=== PATIENT | female | born 1995 | race Caucasian/White ===

== ENCOUNTER → 2018-01-12 | Outpatient (REF) | payer BC ==
[2018-01-12 15:05] LABS: CHLAMYDIA DNA AMPLIFICATION NEGATIVE (NEGATIVE)
[2018-01-13 11:38] LABS: GC DNA AMPLIFICATION NEGATIVE (NEGATIVE)
== END ==
LOC: M LAB REF 13:03
DX: Z34.82 Encounter for supervision of other normal pregnancy, second trimester (principal)
CPT/HCPCS: 87086

== ENCOUNTER → 2018-01-12 | Outpatient (CLI) | payer BC | LOC: M SMT 10:05 | DX: Z13.79 Encounter for other screening for genetic and chromosomal anomalies (principal) ==

== ENCOUNTER → 2018-01-29 | Outpatient (CLI) | payer BC | LOC: M RAD 16:54 | DX: Z34.82 Encounter for supervision of other normal pregnancy, second trimester (principal) ==

== ENCOUNTER 2018-02-08 13:18 | Emergency (ER) | payer BC ==
[2018-02-08] MEDS: NS 1,000 ML IV (16:11)
[2018-02-08 16:17] LABS: BASO % 0.3 % (0.0-1.0); EOS # 0.1 10^3/uL (0.0-0.50); EOS % 0.7 % (0.0-3.0); HEMATOCRIT 36.7 % (36.0-47.0); HEMOGLOBIN 12.7 g/dl (12.0-15.5); IMMATURE GRANULOCYTE % 0.4 % (0-3.0); LYMPH # 2.5 10^3/uL (1.5-6.5); LYMPH % 22.3 % (24.0-44.0); MEAN CORPUSCULAR HEMOGLOBIN 29.7 pg (27.0-33.0); MEAN CORPUSCULAR HGB CONC 34.6 g/dl (32.0-36.5); MEAN CORPUSCULAR VOLUME 85.7 fl (80.0-96.0); MONO # 0.7 10^3/uL (0.0-0.8); MONO % 6.4 % (0.0-5.0); NEUTROPHILS # 7.7 10^3/uL (1.8-7.7); NEUTROPHILS % 69.9 % (36.0-66.0); PLATELET COUNT, AUTOMATED 264 10^3/uL (150-450); RED BLOOD COUNT 4.28 10^6/uL (4.00-5.40)
[2018-02-08 16:49] LABS: KETONE, URINE AUTO RFX 1+ mg/dL (NEGATIVE); LEUKOCYTE ESTERASE UR AUTO RFX NEGATIVE (NEGATIVE); MUCUS, URINE RFX SMALL (NEGATIVE); NITRITE, URINE AUTO RFX NEGATIVE (NEGATIVE); RBC, URINE AUTO RFX 1 /HPF (0-3); SPECIFIC GRAVITY UR AUTO RFX 1.016 (1.002-1.035); SQUAM EPITHELIAL CELL UR AURFX 3 /HPF (0-6); WBC, URINE AUTO RFX 2 /HPF (0-3)
[2018-02-08 16:56] LABS: ALBUMIN 3.4 GM/DL (3.2-5.2); ALBUMIN/GLOBULIN RATIO 0.94 (1.00-1.93); ALKALINE PHOSPHATASE 70 U/L (45-117); ALT/SGPT 32 U/L (12-78); ANION GAP 8 MEQ/L (8-16); AST/SGOT 15 U/L (7-37); BILIRUBIN,DIRECT 0.1 MG/DL (0.0-0.2); BILIRUBIN,TOTAL 0.3 MG/DL (0.2-1.0); BLOOD UREA NITROGEN 8 MG/DL (7-18); CALCIUM LEVEL 8.4 MG/DL (8.5-10.1); CARBON DIOXIDE LEVEL 25 MEQ/L (21-32); CHLORIDE LEVEL 105 MEQ/L (98-107); CREATININE FOR GFR 0.38 MG/DL (0.55-1.30); GLOMERULAR FILTRATION RATE > 60.0 (>60); GLUCOSE, FASTING 79 MG/DL (70-100); HCG, SERUM QUANTITATIVE 21537 MIU/ML; LIPASE 96 U/L (73-393); SODIUM LEVEL 138 MEQ/L (136-145)
== END 2018-02-08 17:45 | disposition home or self-care (01) ==
LOC: M ED 13:18
DX: O26.612 Liver and biliary tract disorders in pregnancy, second trimester (principal); O23.42 Unspecified infection of urinary tract in pregnancy, second trimester; O99.342 Other mental disorders complicating pregnancy, second trimester; Z3A.20 20 weeks gestation of pregnancy; Z79.899 Other long term (current) drug therapy
CPT/HCPCS: 76705

== ENCOUNTER → 2018-02-22 | Outpatient (CLI) | payer BC | LOC: M RAD 16:52 | DX: Z34.82 Encounter for supervision of other normal pregnancy, second trimester (principal); Z36.89 Encounter for other specified antenatal screening; Z3A.21 21 weeks gestation of pregnancy | CPT/HCPCS: 76816 ==

== ENCOUNTER → 2018-03-12 | Outpatient (CLI) | payer BC, MEDICAID ==
[2018-03-12 13:12] LABS: BASO # 0.1 10^3/uL (0.0-0.2); BASO % 0.4 % (0.0-1.0); EOS # 0.1 10^3/uL (0.0-0.50); EOS % 0.7 % (0.0-3.0); HEMATOCRIT 36.9 % (36.0-47.0); HEMOGLOBIN 12.5 g/dl (12.0-15.5); IMMATURE GRANULOCYTE % 0.5 % (0-3.0); LYMPH # 1.9 10^3/uL (1.5-6.5); LYMPH % 16.2 % (24.0-44.0); MEAN CORPUSCULAR HGB CONC 33.9 g/dl (32.0-36.5); MEAN CORPUSCULAR VOLUME 88.7 fl (80.0-96.0); MONO # 0.8 10^3/uL (0.0-0.8); MONO % 6.7 % (0.0-5.0); NEUTROPHILS % 75.5 % (36.0-66.0); PLATELET COUNT, AUTOMATED 258 10^3/uL (150-450); RED BLOOD COUNT 4.16 10^6/uL (4.00-5.40); RED CELL DISTRIBUTION WIDTH 12.7 % (11.5-14.5); WHITE BLOOD COUNT 11.9 10^3/uL (4.0-10.0)
[2018-03-12 13:58] LABS: GLUCOSE CHALLENGE TEST 1 HOUR 60 MG/DL (LESS THAN 140)
== END ==
LOC: M SMT 09:58
DX: Z36.89 Encounter for other specified antenatal screening (principal)
CPT/HCPCS: 82950

== ENCOUNTER → 2018-03-25 | Outpatient (CLI) | payer BC, MEDICAID | LOC: M RAD 10:43 | DX: Z34.82 Encounter for supervision of other normal pregnancy, second trimester (principal); Z36.89 Encounter for other specified antenatal screening; Z3A.26 26 weeks gestation of pregnancy | CPT/HCPCS: 76816 ==

== ENCOUNTER → 2018-04-21 | Outpatient (REF) | payer BC, MEDICAID ==
[2018-04-28 14:19] LABS: SUMMARY SEE SEPARATE REPORT
== END ==
LOC: M LAB REF 13:16
DX: Z34.83 Encounter for supervision of other normal pregnancy, third trimester (principal)
CPT/HCPCS: 87086

== ENCOUNTER → 2018-06-02 | Outpatient (REF) | payer BC, MEDICAID | LOC: M LAB REF 17:15 | DX: Z34.03 Encounter for supervision of normal first pregnancy, third trimester (principal) | CPT/HCPCS: 87081 ==

== ENCOUNTER 2018-07-02 06:26 | Inpatient (IN) | payer BC, MEDICAID ==
[2018-07-02 07:51] LABS: HEMATOCRIT 34.9 % (36.0-47.0); HEMOGLOBIN 12.2 g/dl (12.0-15.5); MEAN CORPUSCULAR HEMOGLOBIN 29.9 pg (27.0-33.0); MEAN CORPUSCULAR VOLUME 85.5 fl (80.0-96.0); PLATELET COUNT, AUTOMATED 209 10^3/uL (150-450); RED BLOOD COUNT 4.08 10^6/uL (4.00-5.40); RED CELL DISTRIBUTION WIDTH 12.3 % (11.5-14.5); WHITE BLOOD COUNT 11.6 10^3/uL (4.0-10.0)
[2018-07-02 08:04] LABS: ALBUMIN 2.6 GM/DL (3.2-5.2); ALKALINE PHOSPHATASE 143 U/L (45-117); ALT/SGPT 18 U/L (12-78); ANION GAP 9 MEQ/L (8-16); AST/SGOT 13 U/L (7-37); BILIRUBIN,TOTAL 0.2 MG/DL (0.2-1.0); BLOOD UREA NITROGEN 9 MG/DL (7-18); CALCIUM LEVEL 8.5 MG/DL (8.5-10.1); CARBON DIOXIDE LEVEL 25 MEQ/L (21-32); CHLORIDE LEVEL 107 MEQ/L (98-107); CREATININE FOR GFR 0.44 MG/DL (0.55-1.30); GLOMERULAR FILTRATION RATE > 60.0 (>60); GLUCOSE, FASTING 89 MG/DL (70-100); POTASSIUM SERUM 3.9 MEQ/L (3.5-5.1); SODIUM LEVEL 141 MEQ/L (136-145); TOTAL PROTEIN 5.5 GM/DL (6.4-8.2)
[2018-07-02] MEDS: miSOPROStol 50 MCG 1/2 TAB (S0191) PO ×2 (08:26→12:33)
[2018-07-02 11:59] LABS: HBSAG L&D NEGATIVE (NEGATIVE)
[2018-07-02] MEDS: LR 1,000 ML IV (17:56)
[2018-07-02] MEDS: OXYTOCIN DRIP 30 UNITS in APPROPRIATE DILUENT 1 EA IV (17:56)
[2018-07-02] MEDS ORDERED: FENTANYL 2MCG/ML ROPIVACAINE 0.2% IN 0.9% NACL 200ML IVBAG As Ordered (22:05)
[2018-07-02] MEDS ORDERED: ONDANSETRON 4MG/2ML VIAL (J2405) As Ordered (23:00)
[2018-07-02] MEDS ORDERED: FENTANYL/ROPIVACAINE/NACL BAG 200 ML EPIDURAL (23:45)
[2018-07-02] MEDS ORDERED: EPIDURAL/PCA KEYS XX (23:45)
[2018-07-02] MEDS ORDERED: diphenhydrAMINE INJ 50MG/ML VIAL (J1200) IV (23:45)
[2018-07-02] MEDS ORDERED: ONDANSETRON 4MG/2ML VIAL (J2405) IV ×2 (23:45)
[2018-07-02] MEDS ORDERED: REFRIGERATOR IV KEYS XX (23:45)
[2018-07-02] MEDS ORDERED: NALOXONE INJ 0.4 MG/1 ML VIAL (J2310) IV (23:45)
[2018-07-02] MEDS ORDERED: EPIDURAL COMMENT XX (23:45)
[2018-07-03] MEDS: ePHEDrine SULFATE 25 MG/5 ML(5MG/ML) SYRINGE IV (00:32)
[2018-07-03] MEDS: FAMOTIDINE 20 MG TAB PO (00:33)
[2018-07-03] MEDS: OXYTOCIN DRIP 30 UNITS in APPROPRIATE DILUENT 1 EA IV (05:19)
[2018-07-03 05:28] LABS: CORD GAS ABE A -3.2; CORD GAS HCO3 A 25.8 MEQ/L; CORD GAS O2 SAT A 41.9 %; CORD GAS PCO2 A 62.9 mmHg; CORD GAS PO2 A 21.4 mmHg; CORD GAS SBC A 20.5 MEQ/L; CORD GAS TCO2 A 27.7 MEQ/L
[2018-07-03 05:29] LABS: CORD GAS ABE V -2.8; CORD GAS HCO3 V 22.5 MEQ/L; CORD GAS PCO2 V 40.9 mmHg; CORD GAS PH V 7.358 UNITS; CORD GAS PO2 V 34.6 mmHg; CORD GAS SBC V 21.7 MEQ/L; CORD GAS TCO2 V 23.7 MEQ/L
[2018-07-03] MEDS ORDERED: MEASLES,MUMPS,RUBELLA VACCINE INJ (MMR-II) (90707) SC (05:30)
[2018-07-03] MEDS ORDERED: ANUSOL HC CREAM 30GM TOP (05:30)
[2018-07-03] MEDS ORDERED: MOM 30ML SUSPENSION UDC PO (05:30)
[2018-07-03] MEDS ORDERED: METHYLERGONOVINE MALEATE 0.2 MG TAB PO (05:30)
[2018-07-03] MEDS ORDERED: DIBUCAINE 1% OINTMENT 30GM TOP (05:30)
[2018-07-03] MEDS ORDERED: RHOGAM 300 MCG (1500 IU) INJ (J2790) IM (05:30)
[2018-07-03] MEDS: PRENATAL VITAMINS CHEWABLE TABLET PO (10:44)
[2018-07-03] MEDS: IBUPROFEN 800 MG TAB PO ×2 (11:42→19:37)
[2018-07-03] MEDS: CitaloPRAM (CeleXA) 10 MG TABLET PO (16:48)
[2018-07-03] MEDS: ACETAMINOPHEN 500 MG TAB PO (16:48)
[2018-07-04] MEDS: ACETAMINOPHEN 500 MG TAB PO (07:17)
[2018-07-04] MEDS: DOCUSATE SODIUM 100 MG CAP PO (07:27)
[2018-07-04] MEDS: CitaloPRAM (CeleXA) 10 MG TABLET PO (09:18)
[2018-07-04] MEDS: PRENATAL VITAMINS CHEWABLE TABLET PO (09:18)
== END 2018-07-04 14:40 | disposition home or self-care (01) | DRG 0 ==
LOC: M LDI 06:26 → M OBS 07-03 07:48
PROVIDERS: Obstetrics & Gynecology
PROC: 3E0P7GC Introduction of Other Therapeutic Substance into Female Reproductive, Via Natural or Artificial Opening (ICD-10-PCS; 2018-07-02)
PROC: 10E0XZZ Delivery of Products of Conception, External Approach (ICD-10-PCS; principal; 2018-07-03)
PROC: 0HQ9XZZ Repair Perineum Skin, External Approach (ICD-10-PCS; 2018-07-03)
DX: O26.62 Liver and biliary tract disorders in childbirth (principal); Z3A.40 40 weeks gestation of pregnancy; O48.0 Post-term pregnancy; O66.0 Obstructed labor due to shoulder dystocia; O70.0 First degree perineal laceration during delivery; Z37.0 Single live birth

== ENCOUNTER → 2018-07-08 | Outpatient (REF) | payer BC, MEDICAID | LOC: M LAB REF 17:00 | DX: R30.0 Dysuria (principal) | CPT/HCPCS: 87086 ==

== ENCOUNTER → 2018-07-13 | Outpatient (REF) | payer BC, MEDICAID | LOC: M LAB REF 16:58 | DX: R30.0 Dysuria (principal) | CPT/HCPCS: 87086 ==

== ENCOUNTER 2018-10-15 16:52 | Inpatient (IN) | payer BC, MEDICAID ==
[~2018-10-15] VITALS: Ht 167.6 cm; Wt 120.7 kg
[~2018-10-15 16:52] MED LIST: AUGM875T28 PO; BENA25CA4 PO; CELE10TA PO; COLA100C5 PO; FOLI1TAB11 PO; IBUP-1114 PO; MAPA500T2 PO; MOM30SS PO; PRENTAB55 PO; ZANTTAB PO
[2018-10-15] MEDS ORDERED: CETI10TA PO (17:05)
[2018-10-15] MEDS ORDERED: OXCA600T8 PO (17:05)
[2018-10-15] MEDS ORDERED: HYDR-643 PO (17:05)
[2018-10-15] MEDS ORDERED: OXCA300T14 PO (17:05)
[2018-10-15] MEDS ORDERED: MEDR150I10 (17:06)
[2018-10-15 17:44] LABS: HEMATOCRIT 42.5 % (36.0-47.0); HEMOGLOBIN 14.2 g/dl (12.0-15.5); MEAN CORPUSCULAR HEMOGLOBIN 28.3 pg (27.0-33.0); MEAN CORPUSCULAR HGB CONC 33.4 g/dl (32.0-36.5); MEAN CORPUSCULAR VOLUME 84.8 fl (80.0-96.0); PLATELET COUNT, AUTOMATED 301 10^3/uL (150-450); RED BLOOD COUNT 5.01 10^6/uL (4.00-5.40); WHITE BLOOD COUNT 9.2 10^3/uL (4.0-10.0)
[2018-10-15 18:10] LABS: HCG, SERUM QUALITATIVE NEGATIVE (NEGATIVE)
[2018-10-15 18:11] LABS: AMPHETAMINES LEVEL URINE NEGATIVE (NEGATIVE); BARBITURATES URINE NEGATIVE (NEGATIVE); BENZODIAZEPINES URINE NEGATIVE (NEGATIVE); CANNABINOIDS URINE POSITIVE (NEGATIVE); COCAINE METABOLITE URINE NEGATIVE (NEGATIVE); METHADONE URINE NEGATIVE (NEGATIVE); OPIATES URINE NEGATIVE (NEGATIVE); PHENCYCLIDINE URINE NEGATIVE (NEGATIVE)
[2018-10-15 18:20] LABS: ALBUMIN 4.3 GM/DL (3.2-5.2); ALT/SGPT 27 U/L (12-78); BILIRUBIN,DIRECT 0.1 MG/DL (0.0-0.2); BILIRUBIN,TOTAL 0.3 MG/DL (0.2-1.0); BLOOD UREA NITROGEN 9 MG/DL (7-18); CALCIUM LEVEL 8.8 MG/DL (8.5-10.1); CARBON DIOXIDE LEVEL 25 MEQ/L (21-32); CHLORIDE LEVEL 106 MEQ/L (98-107); CREATININE FOR GFR 0.69 MG/DL (0.55-1.30); ETHYL ALCOHOL (ETHANOL) < 0.003 % (0.000-0.010); GLOMERULAR FILTRATION RATE > 60.0 (>60); GLUCOSE, FASTING 88 MG/DL (70-100); POTASSIUM SERUM 3.7 MEQ/L (3.5-5.1); SALICYLATE LEVEL < 1.7 MG/DL (5.0-30.0); SODIUM LEVEL 138 MEQ/L (136-145); TOTAL PROTEIN 7.8 GM/DL (6.4-8.2)
[2018-10-15 18:21] LABS: ACETAMINOPHEN LEVEL < 2.0 UG/ML (10.0-30.0); THYROID STIMULATING HORMONE 0.313 uIU/ML (0.358-3.740)
[2018-10-15] MEDS ORDERED: ACETAMINOPHEN TAB 650MG DOSE (2X325MG) PO PRN (19:30)
[2018-10-15] MEDS ORDERED: MAALOX 30 ML SUSP *UDC PO PRN (19:30)
[2018-10-15] MEDS ORDERED: MOM 30ML SUSPENSION UDC PO PRN (19:30)
[2018-10-15 20:09] VITALS: BP 154/96
[2018-10-15] MEDS: traZODone 50 MG TAB PO PRN (22:12)
[2018-10-16 06:00] VITALS: BP 130/93
[2018-10-16 10:55] VITALS: BP 132/81
--- NOTE | 2018-10-16 13:32 | NUR ---
Patient seen, note to follow
[2018-10-16] MEDS: hydrOXYzine 25 MG TAB PO PRN (13:56)
[2018-10-16] MEDS: OXcarbazepine 150 MG TAB PO SCH ×2 (13:56→21:09)
[2018-10-16] MEDS ORDERED: OLANZapine ORAL DISINTEGRATING TAB 5MG PO PRN (15:00)
--- NOTE | 2018-10-16 17:47 | MHHPE ---
DATE OF ADMISSION: 10/16/2018 CHIEF COMPLAINT: Feels irritable. SUBJECTIVE: She is 23 years old. She is single. Has a partner, Dimitri. They have a child, recently born, a few months old. I know the patient from the outpatient clinic, where I see her. Has a history of bipolar disorder (other specific bipolar and related disorders with the possibility of bipolar type 2 disorder). Is also anxious. Please refer to my initial assessment from the outpatient clinic for details related to background history and past psychiatric history. She was seen in the clinic recently. I saw her on 10/05/2018. Please refer to that note for details. She was more stressed, angry, depressed. Was experiencing difficulties with her relationship with her partner. They had decided to get back together again, after she had given . She lives with her mother. Mother helps look after the baby. At that last visit, the patient was started on hydroxyzine at 10 mg twice a day as needed for anxiety with the plan to use it in the short term, and she was aware of this. The Trileptal, which she was on at 750 mg daily, was increased to a total of 900 mg a day. She did that immediately. Has tolerated it well. Says was at work a couple of days ago, when she plugged in her phone to the work computer. Says wanted to Facetime with her mother, and then a colleague told her that whatever is on her phone may be uploaded onto the work computer. She was quite concerned, as she said she may have had some "inappropriate" pictures. She did not go into details. Says became quite concerned, started panicking when she went home. Was unable to calm down. Was worried about that. Says that continued until the next day, which was yesterday. Says by then she had informed her boss about the fact that she was not coming into work and was not well. Says she and Dimitri, her partner, had gotten into an argument of sorts, and then she was physically aggressive toward him. She says she tends to do that when angry, and he was quite upset. Says he wanted to leave. She says she has been physically aggressive toward him on a few occasions since his return. Has tended to do that in other relationships as well. She dropped him at the bus stop. He returned to [place]. Says she became more irritated, angry. Before he had left, it should be noted, she took two pills of the hydroxyzine, each is 10 mg. Wanted to take more, but then he stopped her. She says she is unsure why she wanted to do that, but that she may have thought of taking her life. Then says would not take her own life. Has no intentions of doing so. Had suicidal thoughts. Thought of driving the car off the road but says would not do it. Informed her mother, who brought her here. Says is concerned, gets angry, but only at people whom she is close to, though suggests that has occasionally happened at work as well, where she has been irritable. She says is concerned about this pattern that she has of being physically aggressive and angry toward her partners. Has been smoking cannabis, says three or four times a week, about a bowl at a time. Says does that after her baby has gone to sleep. Says tends to do that since she has given . Suggests it is because her partner smokes. PAST PSYCHIATRIC HISTORY AND BACKGROUND HISTORY: Please refer to the summaries on the clinic. Has had an adverse reaction to [place] in the past. MENTAL STATUS EXAMINATION: She is neat. She is seen in the presence of staff. She is sitting up in bed. She is cooperative. There is no agitation. No psychomotor retardation. She is tearful but reconstitutes. Vague on suicidal thoughts at present. Has no firm plans. No homicidal ideas or intents. No evidence of any psychosis. Intellect average. Cognition grossly intact. Judgment and insight are compromised. ASSESSMENT: 1. Other specified bipolar and related disorders. 2. Rule out bipolar type 2 disorder. 3. Consider possibility of cannabis use disorder. 4. Also consider interpersonal difficulties. Has been depressed, irritable as well, but has had interpersonal difficulties, even when moods have not been very fluctuant. Her relationship is a stressor with Dimitri. That has been back and forth. It should be noted she did quite well emotionally when they were and when she was . I saw her during that period, since March, last year. The interpersonal difficulties may quite possibly be related to her personality style, including the pattern of being aggressive toward her partners. PLAN: She is admitted to the inpatient psychiatry unit, placed on relevant precautions. We will look at obtaining collateral information. The Trileptal will be resumed at 450 mg twice a day. Hydroxyzine is increased to 25 mg every 6 hours as needed for anxiety. We will consider adding to the Trileptal, in terms of increasing the dose if feasible, or looking at adding another mood stabilizer. That may help but is not expected to help with interpersonal difficulties as such, since that has been the pattern. She will be involved in individual, group, and milieu therapy. She is asked to refrain from using any cannabis, as that may be impacting her moods adversely as well. It is difficult to tell. Once she is stable, she will be discharged with followup. She wishes for a referral to anger management classes. They may be helpful as such, though it could be incorporated as part outpatient psychotherapy. Collateral information from her mother would be helpful. I would anticipate a 5-7 day stay. The assessment took 30 minutes. VITAL SIGNS: Blood pressure 132/81, pulse 77, temperature 97.7. LABORATORY VALUES: Complete blood count essentially within normal limits. Metabolic profile essentially within normal limits except for TSH at 0.313 (0.358-3.740). Urine toxicology was positive for cannabinoids.
[2018-10-16 18:00] VITALS: BP 120/68
[2018-10-16] MEDS: traZODone 50 MG TAB PO PRN (21:09)
[2018-10-17 06:00] VITALS: BP 152/88
[2018-10-17] MEDS: OXcarbazepine 150 MG TAB PO SCH ×2 (08:19→21:03)
[2018-10-17] MEDS: hydrOXYzine 25 MG TAB PO PRN (08:19)
[2018-10-17 18:00] VITALS: BP 126/72
[2018-10-18 06:21] VITALS: BP 130/89
[2018-10-18 07:41] LABS: FREE THYROXINE INDEX 2.6 % (1.3-4.8); THYROID STIMULATING HORMONE 1.13 uIU/ML (0.358-3.740); THYROXINE (T4) 7.6 UG/DL (4.5-12.0)
[2018-10-18] MEDS: OXcarbazepine 150 MG TAB PO SCH ×2 (09:46→20:48)
[2018-10-18] MEDS ORDERED: ACETAMINOPHEN TAB 650MG DOSE (2X325MG) PO PRN (13:45)
[2018-10-18] MEDS ORDERED: MOM 30ML SUSPENSION UDC PO PRN (13:45)
[2018-10-18] MEDS ORDERED: MAALOX 30 ML SUSP *UDC PO PRN (13:45)
[2018-10-18] MEDS: busPIRone 5 MG TAB PO SCH ×2 (15:42→20:48)
--- NOTE | 2018-10-18 16:57 | MHIPN ---
DATE: 10/17/2018 CHIEF COMPLAINT: She says she feels better. SUBJECTIVE: She is seen for followup, in the presence of staff. She says she feels better, feels more rested, less anxious, feels it is because she took medication to help with anxiety. She had used the hydroxyzine at 25 mg. She says she has been in contact with her mother, says they do not see eye to eye regarding the patient's boyfriend, but she did not go into details. MENTAL STATUS EXAMINATION: Neat, cooperative. No agitation. No psychomotor retardation. Appears calmer than when last seen, with a more relaxed affect. She is coherent. Denies any suicidal thoughts or intents at present. No homicidal ideas or intents. Cognition grossly intact. Judgment is questionable. ASSESSMENT: 1. Other specified bipolar and related disorders. 2. Consider bipolar type 2 disorder. 3. The possibility of cannabis use disorder. She feels better, and I do not think it is only because she is taking the hydroxyzine, the fact that she is away from her immediate stressors, and an opportunity to reassess matters have tended to help. I would discourage an overdependence on hydroxyzine. No evidence of any misuse, however. PLAN: Consider increase in the Trileptal, but meanwhile continue current dose. She is to continue with the hydroxyzine, though I suggested that it is used in the short-term. She has also been given the option of using Zyprexa in the short-term to help with agitation and she declines it for now. I would encourage her to participate in activities on the unit. I would also suggest that she consider meeting with her mother while here, in the presence of staff, to bring up the disagreements that they may have, including regarding the patient's boyfriend. She will see the assigned psychiatrist and the treatment team tomorrow. VITAL SIGNS: Blood pressure 152/88, pulse 103, temperature 97.9.
[2018-10-18 18:00] VITALS: BP 138/80
--- NOTE | 2018-10-18 19:09 | MHIPNPDOC ---
[facility] Progress Note Progress Note DATE OF SERVICE: 10/18/18 HISTORY: "Says was at work a couple of days ago, when she plugged in her phone to the work computer. Says wanted to Facetime with her mother, and then a rojelio johnson told her that whatever is on her phone may be uploaded onto the work computer. She was quite concerned, as she said she may have had some "inappropriate" pictures. She did not go into details. Says became quite concerned, started panicking when she went home. Was unable to calm down. Was worried about that. Says that continued until the next day, which was yesterday. Says by then she had informed her boss about the fact that she was not coming into work and was not well. Says she and Dimitri, her partner, had gotten into an argument of sorts, and then she was physically aggressive toward him. She says she tends to do that when angry, and he was quite upset. Says he wanted to leave. She says she has been physically aggressive toward him on a few occasions since his return. Has tended to do that in other relationships as well. She dropped him at the bus stop. He returned to [place]. Says she became more irritated, angry. Before he had left, it should be noted, she took two pills of the hydroxyzine, each is 10 mg. Wanted to take more, but then he stopped her. She says she is unsure why she wanted to do that, but that she may have thought of taking her life. Then says would not take her own life. Has no intentions of doing so. Had suicidal thoughts. Thought of driving the car off the road but says would not do it. Informed her mother, who brought her here. Says is concerned, gets angry, but only at people whom she is close to, though suggests that has occasionally happened at work as well, where she has been irritable. She says is concerned about this pattern that she has of being physically aggressive and angry toward her partners." Has been smoking cannabis, says three or four times a week, about a bowl at a time. Says does that after her baby has gone to sleep. Says tends to do that since she has given . Suggests it is because her partner smokes. VITAL SIGNS: See below. NEW TEST RESULTS: See below CURRENT MEDICATIONS: See below. MENTAL STATUS EXAMINATION: Patient is a 23 year old female, who is alert, cooperative, dressed in personal clothes. Speech: Is fluent and spontaneous, normal in rate, tone and volume. Language skills are good. Thought processes including: intact, coherent. Thought content: anxious, angry and sad thoughts about her relationship with her boyfriend who recently left the house. Abstract reasoning, and computation: intact Description of associations: good. Description of abnormal or psychotic thoughts: denies SI, denies HI, denies AV hallucinations, denies thought delusions. Judgment: limited Insight: improving. Orientation: x 3 Recent and remote memory: intact Attention span and concentration: good. Language: normal, well structured. Fund of knowledge: average. Mood: sad/depressed. Affect: congruent with mood, sad. DIAGNOSES: 1. Other specified bipolar and related disorders. 2. Consider bipolar type 2 disorder. 3. The possibility of cannabis use disorder. ASSESSMENT:Patient says she is feeling better because she has been able to reassess her situation. she thinks she might be able to speak with her boyfriend, trying to mend the relationship but she is not quite sure that is going to work and she says "if it doesn't work, it doesn't work". She says that until the baby was born she used to live alone, with the baby, not with the boyfriend and after the baby was born they started living together and that's when things got worse for her. she says she becomes easily irritable, she has had a problem with that since an early age. MANAGEMENT PLAN: Will continue with current treatment and if she would not improve, will consider adding a very small dose of an antidepressant or Abilify TIME SPENT: 15 minutes. Vital Signs Vital Signs Date Time Temp Pulse Resp B/P (MAP) Pulse Ox O2 Delivery O2 Flow Rate FiO2 10/18/18 18:00 97.7 78 20 138/80 (99) 10/15/18 20:09 98 10/15/18 20:05 Room Air Laboratory Data 24H Labs Laboratory Tests 2 10/18/18 06:39: Thyroid Stimulating Hormone (TSH) 1.130, Free Thyroxine Index 2.6, Thyroxine (T4) 7.6, Triiodothyronine (T3) Uptake 34 Current Medications Current Medications Acetaminophen (Tylenol Tab) 650 mg Q4HP PRN PO PAIN; Start 10/18/18 at 13:45 Acetaminophen (Tylenol Tab) 650 mg Q6HP PRN PO HEADACHE or DISCOMFORT; Start 10/15/18 at 19:30; Status Cancel Al Hydrox/Mg Hydrox/Simethicone (Mylanta) 30 ml Q4HP PRN PO HEARTBURN/INDIGESTION; Start 10/18/18 at 13:45 Al Hydrox/Mg Hydrox/Simethicone (Mylanta) 30 ml Q4HP PRN PO HEARTBURN/INDIGESTION; Start 10/15/18 at 19:30; Status Cancel Buspirone HCl (Buspar) 5 mg TID PO Last administered on 10/18/18at 15:42; Start 10/18/18 at 16:00 Hydroxyzine HCl (Atarax) 25 mg Q6HP PRN PO ANXIETY Last administered on 10/08 08:19; Start 10/16/18 at 13:45 Magnesium Hydroxide (Milk Of Magnesia) 30 ml DAILYPRN PRN PO CONSTIPATION; Start 10/18/18 at 13:45 Magnesium Hydroxide (Milk Of Magnesia) 30 ml DAILYPRN PRN PO CONSTIPATION; Start 10/15/18 at 19:30; Status Cancel Mirtazapine (Remeron) 30 mg QHS PO ; Start 10/18/18 at 21:00 Olanzapine (ZyPREXA ZYDIS) 5 mg Q6HP PRN PO ANXIETY/AGITATION; Start 10/16/18 at 15:00 Oxcarbazepine (Trileptal) 450 mg BID PO Last administered on 10/18/18at 09:46; Start 10/16/18 at 09:00 Trazodone HCl (Desyrel) 50 mg QHSP PRN PO INSOMNIA Last administered on 10/16/18at 21:09; Start 10/15/18 at 19:30; Stop 10/18/18 at 11:42; Status DC Allergies Coded Allergies: No Known Allergies (Unverified , 07/02/18) YOCASTA WILL MD Oct 18, 2018 19:03
[2018-10-18] MEDS ORDERED: MIRTAZAPINE 15 MG TAB PO SCH (21:00)
--- NOTE | 2018-10-18 23:49 | HPE ---
DATE OF ADMISSION: 10/15/2018 HISTORY OF THE PRESENT ILLNESS: Please refer to psychiatric history and evaluation for further details on this admission. This examination and history is intended for medical issues which may need treatment, followup, or consult on this 23-year-old female. ALLERGIES: No known allergies. PRIMARY CARE PROVIDER: She currently has none. SOCIAL HISTORY: She is single. She was living with a significant other. They have split up again. She is living with her parents. She has one child, a 3-month-old girl. ETOH: About three times a month. Smokes: None. Recreational drug use: Cannabinoids; she smokes marijuana. PAST MEDICAL HISTORY: Bipolar. She has a history of gallstones. She has a history of wisdom teeth irritation, and she needs extraction. PAST SURGICAL HISTORY: Negative. HOME MEDICATIONS: - cetirizine 10 mg by mouth daily - hydroxyzine 10 mg by mouth as needed for anxiety - Trileptal mg one half tablet by mouth twice a day - medroxyprogesterone acetate 150 mg per mL, one dose LABORATORY STUDIES: CBC was normal. Electrolytes were normal. BUN was 9, creatinine was 0.69. TSH was slightly low at 0.313. Thyroid panel will be ordered. REVIEW OF SYSTEMS: Eleven systems review was done and other than occasional irritation from her wisdom tooth, she had no complaints. PHYSICAL EXAMINATION: A 23-year-old cooperative female, in no acute distress. Height 66 inches, weight 112.3 kg, body mass index (BMI) 42.5. The patient is alert and oriented times three. Pupils are equal and reactive to light. Extraocular movements intact. Cornea and sclerae clear. Conjunctivae is normal. No facial asymmetry. Pharynx: Tongue and gums pink and moist. Tongue is midline. Neck is supple without lymphadenopathy. No thyromegaly. No goiter. Carotids 2+ without bruit. Chest is clear to auscultation without wheeze or retraction. Heart is regular. Abdomen benign. Bowel sounds are positive. Genitalia/Rectal: Not done. Extremities show equal strength, full range of motion. No cyanosis, clubbing or edema. Peripheral pulses equal and palpable bilaterally. Skin is warm and dry. IMPRESSION AND PLAN: Psychiatric plan per psychiatry. History of gallstones. Followup as an outpatient. [place] tooth irritation. Followup with her dentist as an outpatient. Low thyroid-stimulating hormone (TSH). Will get a thyroid panel in the morning. No other acute medical issues.
[2018-10-19 06:00] VITALS: BP 132/85
[2018-10-19] MEDS: OXcarbazepine 150 MG TAB PO SCH ×2 (09:53→21:13)
[2018-10-19] MEDS: busPIRone 5 MG TAB PO SCH ×3 (09:54→21:13)
[2018-10-19 18:00] VITALS: BP 139/61
--- NOTE | 2018-10-19 19:33 | MHIPNPDOC ---
[facility] Progress Note Progress Note DATE OF SERVICE: 10/19/18 HISTORY: As per Dr. Roach: "Says was at work a couple of days ago, when she plugged in her phone to the work computer. Says wanted to Facetime with her mother, and then a colleague told her that whatever is on her phone may be uploaded onto the work computer. She was quite concerned, as she said she may have had some "inappropriate" pictures. She did not go into details. Says became quite concerned, started panicking when she went home. Was unable to calm down. Was worried about that. Says that continued until the next day, which was yesterday. Says by then she had informed her boss about the fact that she was not coming into work and was not well. Says she and Dimitri, her partner, had gotten into an argument of sorts, and then she was physically aggressive toward him. She says she tends to do that when angry, and he was quite upset. Says he wanted to leave. She says she has been physically aggressive toward him on a few occasions since his return. Has tended to do that in other relationships as well. She dropped him at the bus stop. He returned to [place]. Says she became more irritated, angry. Before he had left, it should be noted, she took two pills of the hydroxyzine, each is 10 mg. Wanted to take more, but then he stopped her. She says she is unsure why she wanted to do that, but that she may have thought of taking her life. Then says would not take her own life. Has no intentions of doing so. Had suicidal thoughts. Thought of driving the car off the road but says would not do it. Informed her mother, who brought her here. Says is concerned, gets angry, but only at people whom she is close to, though suggests that has occasionally happened at work as well, where she has been irritable. She says is concerned about this pattern that she has of being physically aggressive and angry toward her partners." Has been smoking cannabis, says three or four times a week, about a bowl at a time. Says does that after her baby has gone to sleep. Says tends to do that since she has given . Suggests it is because her partner smokes. VITAL SIGNS: See below. NEW TEST RESULTS: See below CURRENT MEDICATIONS: See below. MENTAL STATUS EXAMINATION: Patient is a 23 year old female, who is alert, cooperative, dressed in personal clothes. Speech: Is fluent and spontaneous, normal in rate, tone and volume. Language skills are good. Thought processes including: intact, coherent. Thought content: Sad thoughts about ending the relationship with her boyfriend Abstract reasoning, and computation: intact Description of associations: good. Description of abnormal or psychotic thoughts: denies SI, denies HI, denies AV hallucinations, denies thought delusions. Judgment: limited Insight: improving. Orientation: x 3 Recent and remote memory: intact Attention span and concentration: good. Language: normal, well structured. Fund of knowledge: average. Mood: sad/depressed. Affect: congruent with mood, sad. DIAGNOSES: 1. Other specified bipolar and related disorders. 2. Consider bipolar type 2 disorder. 3. The possibility of cannabis use disorder. ASSESSMENT:Patient says that she had a conversation with her boyfriend yesterday and she knows for sure that the relationship is over. She says she never had high expectations from him even when she was even when she has just had her baby because she knows that he doesn't invest a lot of time or effort by keeping in contact with the other child he has with another woman. She said that she has more than enough reasons to keep on living, the main one is her child. She reports that she has several family members and friends that are very supportive. She continues to be sad/depressed but she feels that she is less anxious because now she knows what to expect and she knows that her boyfriend won't be living with her. MANAGEMENT PLAN: Will continue with current treatment and if she would not improve, will consider adding a very small dose of an antidepressant or Abilify TIME SPENT: 15 minutes. Vital Signs Vital Signs Date Time Temp Pulse Resp B/P (MAP) Pulse Ox O2 Delivery O2 Flow Rate FiO2 10/19/18 18:00 98.2 78 16 139/61 (87) 10/15/18 20:09 98 10/15/18 20:05 Room Air Current Medications Current Medications Acetaminophen (Tylenol Tab) 650 mg Q4HP PRN PO PAIN; Start 10/18/18 at 13:45 Acetaminophen (Tylenol Tab) 650 mg Q6HP PRN PO HEADACHE or DISCOMFORT; Start 10/15/18 at 19:30; Status Cancel Al Hydrox/Mg Hydrox/Simethicone (Mylanta) 30 ml Q4HP PRN PO HEARTBURN/INDIGESTION; Start 10/18/18 at 13:45 Al Hydrox/Mg Hydrox/Simethicone (Mylanta) 30 ml Q4HP PRN PO HEARTBURN/INDIGESTION; Start 10/15/18 at 19:30; Status Cancel Buspirone HCl (Buspar) 5 mg TID PO Last administered on 10/19/18at 15:39; Start 10/18/18 at 16:00 Hydroxyzine HCl (Atarax) 25 mg Q6HP PRN PO ANXIETY Last administered on 10/17/18at 08:19; Start 10/16/18 at 13:45 Magnesium Hydroxide (Milk Of Magnesia) 30 ml DAILYPRN PRN PO CONSTIPATION; Start 10/18/18 at 13:45 Magnesium Hydroxide (Milk Of Magnesia) 30 ml DAILYPRN PRN PO CONSTIPATION; Start 10/15/18 at 19:30; Status Cancel Mirtazapine (Remeron) 30 mg QHS PO Last administered on 10/18/18at 20:48; Start 10/18/18 at 21:00; Stop 10/19/18 at 16:14; Status DC Olanzapine (ZyPREXA ZYDIS) 5 mg Q6HP PRN PO ANXIETY/AGITATION; Start 10/16/18 at 15:00 Oxcarbazepine (Trileptal) 450 mg BID PO Last administered on 10/19/18at 09:53; Start 10/16/18 at 09:00 Trazodone HCl (Desyrel) 50 mg QHSP PRN PO INSOMNIA Last administered on 10/16/18at 21:09; Start 10/15/18 at 19:30; Stop 10/18/18 at 11:42; Status DC Allergies Coded Allergies: No Known Allergies (Unverified , 07/02/18) YOCASTA WILL MD Oct 19, 2018 19:33
[2018-10-20 06:42] VITALS: BP 142/66
[2018-10-20] MEDS: busPIRone 5 MG TAB PO SCH ×3 (08:43→20:48)
[2018-10-20] MEDS: OXcarbazepine 150 MG TAB PO SCH ×2 (08:43→20:48)
--- NOTE | 2018-10-20 11:24 | MHIPNPDOC ---
[facility] Progress Note Progress Note DATE OF SERVICE: 10/20/18 HISTORY: As per Dr. Roach: "Says was at work a couple of days ago, when she plugged in her phone to the work computer. Says wanted to Facetime with her mother, and then a colleague told her that whatever is on her phone may be uploaded onto the work computer. She was quite concerned, as she said she may have had some "inappropriate" pictures. She did not go into details. Says became quite concerned, started panicking when she went home. Was unable to calm down. Was worried about that. Says that continued until the next day, which was yesterday. Says by then she had informed her boss about the fact that she was not coming into work and was not well. Says she and Dimitri, her partner, had gotten into an argument of sorts, and then she was physically aggressive toward him. She says she tends to do that when angry, and he was quite upset. Says he wanted to leave. She says she has been physically aggressive toward him on a few occasions since his return. Has tended to do that in other relationships as well. She dropped him at the bus stop. He returned to [place]. Says she became more irritated, angry. Before he had left, it should be noted, she took two pills of the hydroxyzine, each is 10 mg. Wanted to take more, but then he stopped her. She says she is unsure why she wanted to do that, but that she may have thought of taking her life. Then says would not take her own life. Has no intentions of doing so. Had suicidal thoughts. Thought of driving the car off the road but says would not do it. Informed her mother, who brought her here. Says is concerned, gets angry, but only at people whom she is close to, though suggests that has occasionally happened at work as well, where she has been irritable. She says is concerned about this pattern that she has of being physically aggressive and angry toward her partners." Has been smoking cannabis, says three or four times a week, about a bowl at a time. Says does that after her baby has gone to sleep. Says tends to do that since she has given . Suggests it is because her partner smokes. VITAL SIGNS: See below. NEW TEST RESULTS: See below CURRENT MEDICATIONS: See below. MENTAL STATUS EXAMINATION: Patient is a 23 year old female, who is alert, cooperative, dressed in personal clothes. Speech: Is fluent and spontaneous, normal in rate, tone and volume. Language skills are good. Thought processes including: intact, coherent. Thought content: Sad thoughts about ending the relationship with her boyfriend b ut happy that she has chosen to Abstract reasoning, and computation: intact Description of associations: good. Description of abnormal or psychotic thoughts: denies SI, denies HI, denies AV hallucinations, denies thought delusions. Judgment: improving Insight: improving. Orientation: A&OX 3 Recent and remote memory: intact Attention span and concentration: good. Language: normal, well structured. Fund of knowledge: average. Mood: less sad, Affect: congruent with mood DIAGNOSES: 1. Other specified bipolar and related disorders. 2. Consider bipolar type 2 disorder. 3. The possibility of cannabis use disorder. ASSESSMENT:Patient says that she has been doing much better since she has been admitted because it has given her the time and break to "make the decisions that are best for her." She said that it was a hard decision for her to make to leave her BF because he is the father of her child but that she has thought about it while she was here and realized how negative of a relationship it was for her and decided to do what was best for her and end things. She feels like she has good support from her mother. She has been regularly attending group sessions and she believes that they are fun and have given her skills that she will use to cope with her life. Says that they have made her realize she lies group sessions and after discharge plans on asking her manager long term care for resources so that she can continue to go to groups for her depression and anger. She reports very little depressive thoughts and says that her anxiety "almost is not there anymore." She denies any suicidal ideations, no homicidal ideations, no pa ranoia, no AV hallucinations. MANAGEMENT PLAN: Will continue with current treatment Vital Signs Vital Signs Date Time Temp Pulse Resp B/P (MAP) Pulse Ox O2 Delivery O2 Flow Rate FiO2 10/20/18 08:23 Room Air 10/20/18 06:42 97.9 72 16 142/66 (91) 10/15/18 20:09 98 Current Medications Current Medications Acetaminophen (Tylenol Tab) 650 mg Q4HP PRN PO PAIN; Start 10/18/18 at 13:45 Acetaminophen (Tylenol Tab) 650 mg Q6HP PRN PO HEADACHE or DISCOMFORT; Start 10/15/18 at 19:30; Status Cancel Al Hydrox/Mg Hydrox/Simethicone (Mylanta) 30 ml Q4HP PRN PO HEARTBURN/INDIGESTION; Start 10/18/18 at 13:45 Al Hydrox/Mg Hydrox/Simethicone (Mylanta) 30 ml Q4HP PRN PO HEARTBURN/INDIGESTION; Start 10/15/18 at 19:30; Status Cancel Buspirone HCl (Buspar) 5 mg TID PO Last administered on 10/20/18at 08:43; Start 10/18/18 at 16:00 Hydroxyzine HCl (Atarax) 25 mg Q6HP PRN PO ANXIETY Last administered on 10/17/18at 08:19; Start 10/16/18 at 13:45 Magnesium Hydroxide (Milk Of Magnesia) 30 ml DAILYPRN PRN PO CONSTIPATION; Start 10/18/18 at 13:45 Magnesium Hydroxide (Milk Of Magnesia) 30 ml DAILYPRN PRN PO CONSTIPATION; Start 10/15/18 at 19:30; Status Cancel Mirtazapine (Remeron) 30 mg QHS PO Last administered on 10/18/18at 20:48; Start 10/18/18 at 21:00; Stop 10/19/18 at 16:14; Status DC Olanzapine (ZyPREXA ZYDIS) 5 mg Q6HP PRN PO ANXIETY/AGITATION; Start 10/16/18 at 15:00 Oxcarbazepine (Trileptal) 450 mg BID PO Last administered on 10/20/18at 08:43; Start 10/16/18 at 09:00 Trazodone HCl (Desyrel) 50 mg QHSP PRN PO INSOMNIA Last administered on 10/16/18at 21:09; Start 10/15/18 at 19:30; Stop 10/18/18 at 11:42; Status DC Allergies Coded Allergies: No Known Allergies (Unverified , 07/02/18) GME ATTESTATION GME ATTESTATION My faculty preceptor for this patient encounter was physically present during the encounter and was fully available. All aspects of the patient interview, examination, medical decision making process, and medical care plan development were reviewed and approved by the faculty preceptor. The faculty preceptor is aware and concurs with the plan as stated in the body of this note and will attest to such by his/her cosignature. ROB STUART OMS-III Oct 20, 2018 11:24
[2018-10-20 18:00] VITALS: BP 138/88
[2018-10-21 06:44] VITALS: BP 139/89
[2018-10-21] MEDS: busPIRone 5 MG TAB PO SCH (08:32)
[2018-10-21] MEDS: OXcarbazepine 150 MG TAB PO SCH (08:32)
--- NOTE | 2018-10-21 09:37 | MHIPNPDOC ---
[facility] Progress Note Progress Note DATE OF SERVICE: 10/21/18 HISTORY: As per Dr. Roach: "Says was at work a couple of days ago, when she plugged in her phone to the work computer. Says wanted to Facetime with her mother, and then a colleague told her that whatever is on her phone may be uploaded onto the work computer. She was quite concerned, as she said she may have had some "inappropriate" pictures. She did not go into details. Says became quite concerned, started panicking when she went home. Was unable to calm down. Was worried about that. Says that continued until the next day, which was yesterday. Says by then she had informed her boss about the fact that she was not coming into work and was not well. Says she and Dimitri, her partner, had gotten into an argument of sorts, and then she was physically aggressive toward him. She says she tends to do that when angry, and he was quite upset. Says he wanted to leave. She says she has been physically aggressive toward him on a few occasions since his return. Has tended to do that in other relationships as well. She dropped him at the bus stop. He returned to [place]. Says she became more irritated, angry. Before he had left, it should be noted, she took two pills of the hydroxyzine, each is 10 mg. Wanted to take more, but then he stopped her. She says she is unsure why she wanted to do that, but that she may have thought of taking her life. Then says would not take her own life. Has no intentions of doing so. Had suicidal thoughts. Thought of driving the car off the road but says would not do it. Informed her mother, who brought her here. Says is concerned, gets angry, but only at people whom she is close to, though suggests that has occasionally happened at work as well, where she has been irritable. She says is concerned about this pattern that she has of being physically aggressive and angry toward her partners." Has been smoking cannabis, says three or four times a week, about a bowl at a time. Says does that after her baby has gone to sleep. Says tends to do that since she has given . Suggests it is because her partner smokes. VITAL SIGNS: See below. NEW TEST RESULTS: See below CURRENT MEDICATIONS: See below. MENTAL STATUS EXAMINATION: Patient is a 23 year old female, who is alert, cooperative, dressed in personal clothes. Speech: Is fluent and spontaneous, normal in rate, tone and volume. Language skills are good. Thought processes including: intact, coherent. Thought content: Sad thoughts about ending the relationship with her boyfriend b ut happy that she has chosen to Abstract reasoning, and computation: intact Description of associations: good. Description of abnormal or psychotic thoughts: denies SI, denies HI, denies AV hallucinations, denies thought delusions. Judgment: improving Insight: improving. Orientation: A&OX 3 Recent and remote memory: intact Attention span and concentration: good. Language: normal, well structured. Fund of knowledge: average. Mood: less sad, Affect: congruent with mood DIAGNOSES: 1. Other specified bipolar and related disorders. 2. Consider bipolar type 2 disorder. 3. The possibility of cannabis use disorder. ASSESSMENT:Nikki was interviewed this morning and she says she is doing much better. She says that her depression is not even there, she does still have anxiety but it is about her normal and is all about what will happen when she gets home. She says she is "thrilled" to go home and see her daughter but she is anxious about "dealing with the father." She told me that she actually has not spoken to him since she has been here. She made the decision that the relationship was bad for her and to end things but now she needs to have that conversation with him. We discussed writing a list of things down that need said and she believes that is a good idea and she is going to sit down and write it with her mom. She said that no matter if he tried to contact her right away she is going to tell him she needs time to herself for a few days. She has plans to go shopping with her cousin and to do meditation to "be the most positive as possible." She feels well supported by her family at home and is excited about discharge. She denies any suicidal ideations, no homicidal ideations, no paranoia, no AV hallucinations. MANAGEMENT PLAN: Will continue with current treatment. Planning on discharge today Vital Signs Vital Signs Date Time Temp Pulse Resp B/P (MAP) Pulse Ox O2 Delivery O2 Flow Rate FiO2 10/21/18 06:44 98.4 76 16 139/89 (106) 10/20/18 08:23 Room Air 10/15/18 20:09 98 Current Medications Current Medications Acetaminophen (Tylenol Tab) 650 mg Q4HP PRN PO PAIN; Start 10/18/18 at 13:45 Acetaminophen (Tylenol Tab) 650 mg Q6HP PRN PO HEADACHE or DISCOMFORT; Start 10/15/18 at 19:30; Status Cancel Al Hydrox/Mg Hydrox/Simethicone (Mylanta) 30 ml Q4HP PRN PO HEA RTBURN/INDIGESTION; Start 10/18/18 at 13:45 Al Hydrox/Mg Hydrox/Simethicone (Mylanta) 30 ml Q4HP PRN PO HEARTBURN/INDIGESTION; Start 10/15/18 at 19:30; Status Cancel Buspirone HCl (Buspar) 5 mg TID PO Last administered on 10/21/18 08:32; Start 10/18/18 at 16:00 Hydroxyzine HCl (Atarax) 25 mg Q6HP PRN PO ANXIETY Last administered on 10/17/18at 08:19; Start 10/16/18 at 13:45 Magnesium Hydroxide (Milk Of Magnesia) 30 ml DAILYPRN PRN PO CONSTIPATION; Start 10/18/18 at 13:45 Magnesium Hydroxide (Milk Of Magnesia) 30 ml DAILYPRN PRN PO CONSTIPATION; Start 10/15/18 at 19:30; Status Cancel Mirtazapine (Remeron) 30 mg QHS PO Last administered on 10/18/18at 20:48; Start 10/18/18 at 21:00; Stop 10/19/18 at 16:14; Status DC Olanzapine (ZyPREXA ZYDIS) 5 mg Q6HP PRN PO ANXIETY/AGITATION; Start 10/16/18 at 15:00 Oxcarbazepine (Trileptal) 450 mg BID PO Last administered on 10/21/18at 08:32; Start 10/16/18 at 09:00 Trazodone HCl (Desyrel) 50 mg QHSP PRN PO INSOMNIA Last administered on 10/16/18at 21:09; Start 10/15/18 at 19:30; Stop 10/18/18 at 11:42; Status DC Allergies Coded Allergies: No Known Allergies (Unverified , 07/02/18) GME ATTESTATION GME ATTESTATION My faculty preceptor for this patient encounter was physically present during the encounter and was fully available. All aspects of the patient interview, examination, medical decision making process, and medical care plan development were reviewed and approved by the faculty preceptor. The faculty preceptor is aware and concurs with the plan as stated in the body of this note and will attest to such by his/her cosignature. ROB STUART S-III Oct 21, 2018 09:37
[2018-10-21] MEDS ORDERED: BUSP5TA PO (10:16)
[2018-10-21] MEDS ORDERED: HYDR-3363 PO (10:16)
[2018-10-21] MEDS ORDERED: OXCA600T8 PO (10:16)
[2018-10-21] MEDS ORDERED: OXCA300T14 PO (10:16)
--- NOTE | 2018-10-24 20:53 | MHDSPDOC ---
[facility] Discharge Summary Discharge Summary DATE OF ADMISSION: Oct 15, 2018 at 19:20 DATE OF DISCHARGE: Oct 21, 2018 at 11:30 DISCHARGE DIAGNOSES: 1. Other specified bipolar and related disorders. 2. Consider bipolar type 2 disorder. REASON FOR ADMISSION: As epr Dr. Roach's note: " "Says was at work a couple of days ago, when she plugged in her phone to the work computer. Says wanted to Facetime with her mother, and then a colleague told her that whatever is on her phone may be uploaded onto the work computer. She was quite concerned, as she said she may have had some "inappropriate" pictures. She did not go into details. Says became quite concerned, started panicking when she went home. Was unable to calm down. Was worried about that. Says that continued until the next day, which was yesterday. Says by then she had informed her boss about the fact that she was not coming into work and was not well. Says she and Dimitri, her partner, had gotten into an argument of sorts, and then she was physically aggressive toward him. She says she tends to do that when angry, and he was quite upset. Says he wanted to leave. She says she has been physically aggressive toward him on a few occasions since his return. Has tended to do that in other relationships as well. She dropped him at the bus stop. He returned to [place]. Says she became more irritated, angry. Before he had left, it should be noted, she took two pills of the hydroxyzine, each is 10 mg. Wanted to take more, but then he stopped her. She says she is unsure why she wanted to do that, but that she may have thought of taking her life. Then says would not take her own life. Has no intentions of doing so. Had suicidal thoughts. Thought of driving the car off the road but says would not do it. Informed her mother, who brought her here. Says is concerned, gets angry, but only at people whom she is close to, though suggests that has occasionally happened at work as well, where she has been irritable. She says is concerned about this pattern that she has of being physically aggressive and angry toward her partners." Has been smoking cannabis, says three or four times a week, about a bowl at a time. Says does that after her baby has gone to sleep. Says tends to do that since she has given . Suggests it is because her partner smokes. CONSULTANTS INVOLVED: None TREATMENT AND PROGRESS ON THE UNIT : Upon initial evaluation the patient was observed to be airy depressed, she had very poor eye contact, her mood and affect were flat/constricted. She minimized her symptoms of depression, she says she has suicidal thoughts but she will not kill herself because she has a child and she wants to be there for him. She reported that she felt very safe at her mother's house, she said that she knows her mother lost her and supports her just has several family members and friends. She says she has being going through a lot of problems with her partner, the father of the child and even since she was she had no expectations about him because she knew that he had not been exactly a responsible father for another child that he had previously with another woman. During her hospital stay she was ambivalent about reconciling with her partner about 48 hours before her discharge she says she already had made up her mind and she has decided not to go back to the ex boyfriend. She had a telephone conversation with him, she said and they had decided not to go back. She mentioned that knowing that they were not going back took a lot of anxiety off her chest. She requested to be discharged because she felt that she was getting better and that she could be home with her mom and her child. She was not suicidal, not homicidal and not psychotic. She had good response to medications and she did not develop adverse effects HOSPITAL COURSE: As above DISCHARGE ASSESSMENT: Patient was not suicidal, not homicidal and not psychotic at the time of her discharge MENTAL STATUS EXAMINATION ON DISCHARGE: Patient is a 23 year old female, who is alert, cooperative, dressed in personal clothes. Speech: Is fluent and spontaneous, normal in rate, tone and volume. Language skills are good. Thought processes including: intact, coherent. Thought content: Sad thoughts about ending the relationship with her boyfriend but happy that she has chosen to Abstract reasoning, and computation: intact Description of associations: good. Description of abnormal or psychotic thoughts: denies SI, denies HI, denies AV hallucinations, denies thought delusions. Judgment: improving Insight: improving. Orientation: A&OX 3 Recent and remote memory: intact Attention span and concentration: good. Language: normal, well structured. Fund of knowledge: average. Mood: less sad, Affect: congruent with mood DIAGNOSES: 1. Other specified bipolar and related disorders. 2. Consider bipolar type 2 disorder. MEDICATIONS ON DISCHARGE: Scheduled Buspirone HCl (Buspirone HCl) 5 Mg Tab, 5 MG PO TID for ANXIETY, #21 Cetirizine HCl (Cetirizine HCl) 10 Mg Tab, 1 TAB PO DAILY for 30 Days, #30 (Reported) Oxcarbazepine (Oxcarbazepine) 300 Mg Tab, 0.5 TAB PO BID for MOOD, #4 Oxcarbazepine (Oxcarbazepine) 600 Mg Tab, 0.5 TAB PO BID for MOOD, #4 Scheduled PRN Acetaminophen (Mapap) 500 Mg Tab, 1,000 MG PO Q6HP PRN for MILD PAIN (PS 1-4), (Reported) Hydroxyzine HCl (Hydroxyzine HCl) 25 Mg Tab, 25 MG PO Q6HP PRN for ANXIETY, #28 Miscellaneous Medications Medroxyprogesterone Acetate (Medroxyprogesterone Aceta) 150 Mg/Ml Inj, 1 DOSE, (Reported) PLAN/FOLLOWUP ARRANGEMENTS: Follow Up Care Education Label * Mental Health Appt 1 * Mental Health [facility] * Established With This Provider Yes * Therapist RUBY PALACIOS * Date Oct 25, 2018 * Time 10:00 * Address of Clinic or Practice [address] [place] [address] * Follow Up Care Education Label * Medical * Medical Follow Up [facility] * Established With This Provider No * Therapist DR. MORRIS * Date Nov 02, 2018 * Time 11:00 * Address of Clinic or Practice [address] [place] [address] * The amount of time spent in the coordination of care for this patient was approximately 30 minutes. Vital Signs/I&Os Vital Signs Date Time Temp Pulse Resp B/P (MAP) Pulse Ox O2 Delivery O2 Flow Rate FiO2 10/21/18 06:44 98.4 76 16 139/89 (106) 10/20/18 08:23 Room Air Medications Scheduled Buspirone HCl (Buspirone HCl) 5 Mg Tab, 5 MG PO TID for ANXIETY, #21 Cetirizine HCl (Cetirizine HCl) 10 Mg Tab, 1 TAB PO DAILY for 30 Days, #30 (Reported) Oxcarbazepine (Oxcarbazepine) 300 Mg Tab, 0.5 TAB PO BID for MOOD, #4 Oxcarbazepine (Oxcarbazepine) 600 Mg Tab, 0.5 TAB PO BID for MOOD, #4 Scheduled PRN Acetaminophen (Mapap) 500 Mg Tab, 1,000 MG PO Q6HP PRN for MILD PAIN (PS 1-4), (Reported) Hydroxyzine HCl (Hydroxyzine HCl) 25 Mg Tab, 25 MG PO Q6HP PRN for ANXIETY, #28 Miscellaneous Medications Medroxyprogesterone Acetate (Medroxyprogesterone Aceta) 150 Mg/Ml Inj, 1 DOSE, (Reported) Allergies Coded Allergies: No Known Allergies (Unverified , 07/02/18) YOCASTA WLIL MD Oct 24, 2018 20:51
== END 2018-10-21 11:30 | disposition home or self-care (01) | DRG 753 ==
LOC: M ED 16:52 → M ED INP 19:20 → M PSY 19:58
PROVIDERS: ADMIT Psychiatry & Neurology Psychiatry; ATTEND Psychiatry & Neurology Psychiatry
DX: F31.89 Other bipolar disorder (principal); F12.10 Cannabis abuse, uncomplicated; Z79.899 Other long term (current) drug therapy

== ENCOUNTER → 2019-09-22 | Outpatient (REF) | payer OTHER ==
[~2019-09-22] MED LIST changes: +BUSP5TA PO; +CETI10TA PO; +HYDR-3363 PO; +HYDR-643 PO; +MEDR150I10; +OXCA300T14 PO; +OXCA600T8 PO; +ZANT150T40 PO; -ZANTTAB PO
[2019-09-23 14:18] LABS: CHLAMYDIA DNA AMPLIFICATION NEGATIVE (NEGATIVE); GC DNA AMPLIFICATION NEGATIVE (NEGATIVE)
== END ==
LOC: M SFHCWAGY 11:42
PROVIDERS: ATTEND Advanced Practice Midwife
DX: Z12.4 Encounter for screening for malignant neoplasm of cervix (principal); Z11.3 Encounter for screening for infections with a predominantly sexual mode of transmission

== ENCOUNTER → 2020-09-26 | Outpatient (REF) | payer OTHER, MEDICAID ==
[2020-09-26 15:39] LABS: CHLAMYDIA DNA AMPLIFICATION POSITIVE (NEGATIVE); GC DNA AMPLIFICATION NEGATIVE (NEGATIVE)
== END ==
LOC: M SFHCWAGY 13:10
PROVIDERS: ATTEND Advanced Practice Midwife
DX: Z3A.10 10 weeks gestation of pregnancy (principal)

== ENCOUNTER → 2020-10-24 | Outpatient (CLI) | payer OTHER, MEDICAID ==
[2020-10-24 15:39] LABS: CHLAMYDIA DNA AMPLIFICATION NEGATIVE (NEGATIVE); GC DNA AMPLIFICATION NEGATIVE (NEGATIVE)
== END ==
LOC: M PLALAB 10:01
PROVIDERS: ATTEND Advanced Practice Midwife
DX: Z34.82 Encounter for supervision of other normal pregnancy, second trimester (principal); Z3A.00 Weeks of gestation of pregnancy not specified; Z11.3 Encounter for screening for infections with a predominantly sexual mode of transmission

== ENCOUNTER → 2020-11-08 | Outpatient (CLI) | payer OTHER, MEDICAID | LOC: M PLALAB 15:49 | PROVIDERS: ATTEND Advanced Practice Midwife | DX: Z34.82 Encounter for supervision of other normal pregnancy, second trimester (principal); Z3A.00 Weeks of gestation of pregnancy not specified ==

== ENCOUNTER → 2020-12-03 | Outpatient (CLI) | payer OTHER ==
--- NOTE | 2020-12-04 05:32 | REP ---
INDICATION: ANATOMY COMPARISON: None. TECHNIQUE: Transabdominal obstetrical ultrasound with color Doppler evaluation. FINDINGS: Examination demonstrates a single live intrauterine in breech presentation. motion is identified by technologist. Placenta is noted anterior and grade 1 without evidence for placenta previa or abruption. Amniotic fluid volume is normal. Cervix measures 3.5 cm in length and appears closed.. Gestational age by LMP 20 weeks 0 days with NANCY 04/22/2021. Gestational age by current measurements 20 weeks 1 day with NANCY 04/21/2021. FHR equals 142 beats per minute. BPD: 4.5 cm at 19 weeks 3 days HC: 17.2 cm at 19 weeks 5 days AC: 14.7 cm at 20 weeks 0 days FL: 3.4 cm at 20 weeks 5 days HL: 3.3 cm at 21 weeks 0 days HC/AC: 1.17 Estimated weight 340 grams (59thpercentile). Anatomical assessment demonstrates normal structures including cranium, choroid plexus, cavum, cerebellum/posterior fossa, facial features, lungs, stomach, cord insertion/three-vessel cord, bladder, spine, and extremities. Limited evaluation of the heart/ventricular outflow tracts, diaphragm, and kidneys due to positioning and maternal body habitus. IMPRESSION: Single live intrauterine in breech presentation demonstrating appropriate estimated weight. Anatomical limitations as noted above may warrant re-evaluation and follow-up. <Electronically signed by Abel Pierre > 12/04/20 [id number]
== END ==
LOC: M WHC 15:24
PROVIDERS: ATTEND Advanced Practice Midwife
DX: Z36.89 Encounter for other specified antenatal screening (principal); Z3A.20 20 weeks gestation of pregnancy

== ENCOUNTER → 2021-01-18 | Outpatient (REF) | payer OTHER ==
[2021-01-18 11:11] LABS: HEMATOCRIT 39.1 % (36.0-47.0); HEMOGLOBIN 12.8 g/dl (12.0-15.5); MEAN CORPUSCULAR HEMOGLOBIN 29.6 pg (27.0-33.0); MEAN CORPUSCULAR HGB CONC 32.7 g/dl (32.0-36.5); MEAN CORPUSCULAR VOLUME 90.3 fl (80.0-96.0); PLATELET COUNT, AUTOMATED 250 10^3/uL (150-450); RED BLOOD COUNT 4.33 10^6/uL (4.00-5.40); WHITE BLOOD COUNT 10.2 10^3/uL (4.0-10.0)
[2021-01-18 11:49] LABS: ALT/SGPT 16 U/L (12-78); BILIRUBIN,DIRECT < 0.1 MG/DL (0.0-0.2); BILIRUBIN,TOTAL 0.3 MG/DL (0.2-1.0); TOTAL PROTEIN 6.4 GM/DL (6.4-8.2)
== END ==
LOC: M PLALAB 08:16
PROVIDERS: ATTEND Specialist
DX: L50.9 Urticaria, unspecified (principal)

== ENCOUNTER → 2021-01-22 | Outpatient (CLI) | payer OTHER ==
--- NOTE | 2021-01-23 03:48 | REP ---
INDICATION: F/U ANATOMY COMPARISON: 12/03/2020 TECHNIQUE: Transabdominal obstetrical ultrasound with color Doppler evaluation. FINDINGS: Examination demonstrates a single live intrauterine in cephalic presentation. motion is identified by technologist. Placenta is noted anterior and grade 1 without evidence for placenta previa or abruption. Amniotic fluid volume is normal. Cervix measures 3.8 cm in length and appears closed.. Gestational age by LMP 27 weeks 1 day with NANCY 04/22/2021. Gestational age by current measurements 27 weeks 0 days with NANCY 04/23/2021. FHR equals 147 beats per minute. Estimated weight 995 grams (28thpercentile). Anatomical assessment demonstrates normal structures including kidneys and diaphragm. Heart and cardiac ventricular outflow tracts again limited due to positioning and maternal body habitus. IMPRESSION: Limited anatomical assessment. <Electronically signed by Abel Pierre > 01/23/21 [id number]
== END ==
LOC: M WHC 14:58
PROVIDERS: ATTEND Specialist
DX: Z34.82 Encounter for supervision of other normal pregnancy, second trimester (principal); Z3A.27 27 weeks gestation of pregnancy

== ENCOUNTER → 2021-03-26 | Outpatient (REF) | payer OTHER | LOC: M SFHCWAGY 12:57 | PROVIDERS: ATTEND Advanced Practice Midwife | DX: Z36.89 Encounter for other specified antenatal screening (principal); Z3A.36 36 weeks gestation of pregnancy ==

== ENCOUNTER → 2021-03-28 | Outpatient (CLI) | payer OTHER ==
--- NOTE | 2021-03-28 12:47 | REP ---
INDICATION: F/U ANATOMY. COMPARISON: 01/22/2021. TECHNIQUE: Real-time sonographic evaluation of the gravid uterus performed. FINDINGS: Estimated gestational age is36 weeks 3 days, EDC 04/22/2021. Today's measurements indicate appropriate growth. Presentation: Cephalic Placenta anterior, grade 1, without evidence of placenta previa. heart rate is recorded at 156 beats per minute. Amniotic fluid is subjectively normal. DOMINIQUE 10.0, normal range 7.6-24.7. Biometry chart: BPD: 88 mm, 35 weeks 3 days, 35th percentile. HC: 320 mm, 36 weeks 0 days, 43rd percentile AC: 337 mm, 37 weeks 4 days, 68th percentile Femur length: 71 mm, 36 weeks 2 days, 48th percentile HC to AC ratio: 0.95, normal range 0.92-1.11. Estimated weight: 3052g, 65th percentile. SD ratio umbilical artery 2.24, normal 1.62-3.48. RI 0.55, normal 0.44-0.71. IMPRESSION: Viable single intrauterine gestation as above. <Electronically signed by Christian Pretty > 03/28/21 1240
== END ==
LOC: M WHC 10:35
PROVIDERS: ATTEND Advanced Practice Midwife
DX: O26.849 Uterine size-date discrepancy, unspecified trimester (principal); Z3A.36 36 weeks gestation of pregnancy

== ENCOUNTER 2021-04-15 08:17 | Inpatient (IN) | payer OTHER ==
[2021-04-15] VITALS (26 sets, daily range): BP systolic 98–142; BP diastolic 54–82
[~2021-04-15] VITALS: Ht 167.6 cm; Wt 128.0 kg
[2021-04-15] MEDS ORDERED: LACTATED RINGER'S 1000 ML IV STA (08:52)
[2021-04-15] MEDS ORDERED: TRANEXAMIC ACID INJection 1,000 MG in NS 100 ML IV PRN (08:55)
[2021-04-15] MEDS ORDERED: CARBOPROST TROMETHAMINE 250 MCG/ML AMP IM PRN (08:55)
[2021-04-15] MEDS ORDERED: METHYLERGONOVINE MALEATE 0.2 MG/ML VIAL (J2210) IM PRN (08:55)
[2021-04-15] MEDS ORDERED: OXYTOCIN DRIP 30 UNITS in IV 1 EA IV PRN (08:55)
[2021-04-15] MEDS ORDERED: LIDOCAINE 1% MDV 20ML VIAL INFIL PRN (08:55)
[2021-04-15] MEDS ORDERED: CLAR10CA3 PO (09:05)
[2021-04-15] MEDS ORDERED: HOME MED LIST COMPLETE! XX SCH (09:10)
[2021-04-15 09:51] LABS: HEMATOCRIT 37.9 % (36.0-47.0); MEAN CORPUSCULAR HGB CONC 34.3 g/dl (32.0-36.5); MEAN CORPUSCULAR VOLUME 87.5 fl (80.0-96.0); PLATELET COUNT, AUTOMATED 230 10^3/uL (150-450); RED BLOOD COUNT 4.33 10^6/uL (4.00-5.40); WHITE BLOOD COUNT 11.1 10^3/uL (4.0-10.0)
--- NOTE | 2021-04-15 09:52 | HPEPDOC ---
Obstetrical History & Physical General Date of Admission Apr 15, 2021 at 08:17 Primary Care Physician: KY MEJIA CNM History of Present Illness Nikki is a 26-year-old female who is a at 39 weeks gestation with an NANCY of 04/22/21 based off of her first trimester ultrasound. Her was complicated by a history of shoulder dystocia with her last . Growth ultrasound done at 36.3 weeks gestation with EFW 3052 grams (65%). Desires vaginal delivery. IOL scheduled today due to her history of shoulder dystocia. Her has also been complicated by bipolar with [facility]. She reports active movement and occasional contractions. She denies vaginal bleeding or leaking of fluid. Chief Complaint: Induction of labor Information Provided By: Patient Age: 26 : 2 Term: 1 Pre-term: 0 Abortions: 0 Livin Care Care: Good Care Dating Final EDC: Apr 22, 2021 Final EDC by: 1st trimester (US) EGA at Admission: 39 Antepartum Course Diagnos(e)s history of shoulder dystocia Height (inches): 66 Admission Weight (lbs.): 281 Past Medical History Past Obstetrical History : Past Obstetrical History: Primgravida Date of Delivery: Jul 03, 2018 Gestation: 40 Type of Delivery: Spontaneous Vaginal Del. Sex of Infant: Female (8 lbs 4 oz) Complications: Yes (shoulder dystocia) APPLIED BEHAVIOR SCIENCE SPECIALIST History: History of STD (chlamydia during ) Past Medical History Medical History gallstones bipolar Surgical History: Ary teeth Family History Significant Family History: Diabetes, Hypertension, Other (bipolar) Social History Marital Status: Single Family situation: Spouse/partner home Psychosocial History: Bipolar (sees Dr. Roach) * Smoker: non-smoker Alcohol: Denies Drugs: marijuana Abuse Violence Screening Have you been hit/kicked/slapp: No Have you been sexually assault: No Allergies Coded Allergies: SEASONAL ALLERGIES (Verified Allergy, Mild, NASAL CONGESTION, 04/15/21) Medications Scheduled Loratadine (Claritin) 10 Mg Capsule, 10 MG PO DAILY for allergy symptoms Physical Examination Physical Examination GENERAL: Alert and oriented times three. ABDOMEN: Gravid and non-tender to touch. FETUS: Is vertex (VTX) by sterile vaginal examination (SVE), fetus is vertex (VTX) by Edward. LUNGS: Clear to auscultation (CTA). EXTREMITIES: Generalized edema. No clonus. Deep tendon reflexes (DTRs) + 2. Vital Signs/I&O Vital Signs Label Value Date Time Patient Temperature 97.1 degrees F 04/15/21 0838 Temperature Source Temporal 04/15/21 0838 Pulse 105 04/15/21 0838 Respiratory Rate 18 bpm 04/15/21 0838 Bedside Pulse Oximetry 97 % 04/15/21 0838 Blood Pressure Assessment 100/56 (71) 04/15/21 0838 Source Automatic Cuff (NIBP) Laboratory Data [facility] Laboratory Tests 2 04/15/21 08:31: Serology Scanned Report Hepatitis B Testing 04/15/21 09:33: CBC/BMP Pertinent Laboratoy Data Blood Type: O+ RBC Antibody Screen: Negative HIV: Negative Hepatitis B: Negative Hepatitis C: Negative Rapid Plasma Reagin: Nonreactive Rubella: Immune Chlamydia/Gonorrhea: Positive (ERNESTINE negative) Glucose Tolerance Test: 47 Diag/Inter Therapy NIPT low risk normal female Anatomy Ultrasound Ultrasound Date: Mar 28, 2021 Placenta Location: Anterior Normal Anatomy: Yes Placenta Previa: No Estimated Weight (grams): 3052 Vaginal Examination Dilation: 2cm Effacement: 50% Station: -2 Cervical Consistency: Soft Cervical Position: Lateral Presentation: Cephalic presentation Assessment Heart Rate (FHR): 135 Variability: Moderate Accelerations: Positive Decelerations: None Tocometer Contractions: Yes Frequency: irregular Multi-drug resistant Organism: No history of MDRO Assessment/Plan Assessment IUP at 39 weeks gestation bipolar GBS negative Category I FHR tracing history of shoulder dystocia Plan Admit to L&D. OOB ad armaan. Diet: regular now then clears with IV Pitocin. . Group B Streptococcus (GBS) negative. Labs and intravenous (IV) per unit protocol. Counseled on Cytotec and Pitocin for induction of labor. Anesthesia consult per patient's request. Lactated Ringers (LR): Bolus 800 mL prior to epidural then at 125 mL/hr. Anticipate cervical ripening. C-S as appropriate. KY MEJIA CNM Apr 15, 2021 09:52
[2021-04-15] MEDS: miSOPROStol 50MCG 1/2 TABLET PO SCH ×2 (10:16→14:55)
[2021-04-15] MEDS ORDERED: OXYTOCIN DRIP 30 UNITS in IV 1 EA IV SCH (20:10)
[2021-04-15] MEDS ORDERED: LR 1,000 ML IV SCH (20:10)
[2021-04-15] MEDS: LR 1,000 ML IV SCH (20:17)
--- NOTE | 2021-04-15 20:39 | IPNPDOC ---
Obstetrical Progress Note Date of Service Apr 15, 2021 Subjective Patient reports feeling her contractions. Objective Vital Signs Date Time Temp Pulse Resp B/P (MAP) Pulse Ox O2 Delivery O2 Flow Rate FiO2 04/15/21 19:38 99.0 82 18 106/56 (73) 04/15/21 18:40 99 Room Air Assessment Heart Rate (FHR): 130 Variability: Moderate Accelerations: Positive Decelerations: None Heart Rate Tracing: Category I Tocometer Contractions: Yes Frequency: other (2-4 minutes) Sterile Vaginal Examination Dilation: 4 cm Effacement (%): other (75%) Station: -2 Cervical Consistency: Soft Cervical Position: Lateral Postion/Presentation: Cephalic presentation Assessment and Plan Age: 26 : 2 Term: 1 Pre-term: 0 Abortions: 0 Livin EGA at Admission: 39 Status: Reassuring Group B Streptococcus: Negative Anticipate: Vaginal Delivery Additional Comments Patient to be started on IV Pitocin per order. KY MEJIA CNM Apr 15, 2021 20:39
[2021-04-15] MEDS ORDERED: FENTANYL 2MCG/ML ROPIVACAINE 0.2% IN 0.9% NACL 100ML IVBAG As Ordered ONE ×2 (21:59→22:01)
[2021-04-15] MEDS ORDERED: diphenhydrAMINE 50MG/ML VIAL (J1200) IV PRN (23:45)
[2021-04-15] MEDS ORDERED: ONDANSETRON 4MG/2ML VIAL IV PRN (23:45)
[2021-04-15] MEDS ORDERED: EPIDURAL/PCA KEYS XX PRN (23:45)
[2021-04-15] MEDS ORDERED: REFRIGERATOR IV KEYS XX PRN (23:45)
[2021-04-15] MEDS ORDERED: NALOXONE INJ 0.4MG/1ML VIAL (J2310 PER 1MG) IV PRN (23:45)
[2021-04-15] MEDS: FENTANYL/ROPIVACAINE/NACL BAG 100 ML EPIDURAL SCH (23:45)
[2021-04-15] MEDS ORDERED: ePHEDrine SULFATE 25 MG/5 ML(5MG/ML) SYRINGE IV PRN (23:45)
[2021-04-15] MEDS ORDERED: EPIDURAL COMMENT XX SCH (23:45)
[2021-04-15] MEDS ORDERED: LACTATED RINGER'S 1000 ML IV PRN (23:45)
[2021-04-16] VITALS (19 sets, daily range): BP systolic 108–146; BP diastolic 59–86
[2021-04-16] MEDS: LR 1,000 ML IV SCH ×2 (00:55→01:33)
--- NOTE | 2021-04-16 01:30 | IPNPDOC ---
Obstetrical Progress Note Date of Service Apr 16, 2021 Subjective Patient reports feeling her contractions and feeling pressure. Objective Vital Signs Date Time Temp Pulse Resp B/P (MAP) Pulse Ox O2 Delivery O2 Flow Rate FiO2 04/15/21 23:41 72 18 100/54 (69) 04/15/21 23:12 98.6 04/15/21 18:40 99 Room Air Assessment Heart Rate (FHR): 130 Variability: Moderate Accelerations: Positive Decelerations: None Heart Rate Tracing: Category I Tocometer Contractions: Yes Frequency: regular Sterile Vaginal Examination Dilation: 7 cm Effacement (%): 100% Station: 0 Postion/Presentation: Cephalic presentation Assessment and Plan Age: 26 EGA at Admission: 39 Status: Reassuring Group B Streptococcus: Negative Anticipate: Vaginal Delivery Additional Comments Anesthesia consulted for bolus. Anticipate vaginal delivery. KY MEJIA CNM Apr 16, 2021 01:30
[2021-04-16] MEDS ORDERED: fentaNYL 100 MCG/2 ML INJECTION (J3010) As Ordered ONE (01:47)
[2021-04-16] MEDS ORDERED: METHYLERGONOVINE MALEATE 0.2 MG TAB PO PRN (02:50)
[2021-04-16] MEDS ORDERED: DOCUSATE SODIUM 100MG CAPSULE PO PRN (02:50)
[2021-04-16] MEDS ORDERED: ACETAMINOPHEN TAB 650MG DOSE (2X325MG) PO PRN (02:50)
[2021-04-16] MEDS ORDERED: RHOGAM 300 MCG (1500 IU) INJ (J2790) IM SCH (02:50)
[2021-04-16] MEDS ORDERED: busPIRone 5 MG TAB PO PRN (02:50)
[2021-04-16] MEDS ORDERED: ANUSOL HC CREAM 30GM TOP PRN (02:50)
[2021-04-16] MEDS ORDERED: DIBUCAINE 1% OINTMENT 30GM TOP PRN (02:50)
[2021-04-16] MEDS ORDERED: IBUPROFEN 600MG TAB PO PRN (02:50)
[2021-04-16] MEDS ORDERED: IBUPROFEN 800 MG TAB PO PRN (02:50)
[2021-04-16] MEDS ORDERED: MEASLES,MUMPS,RUBELLA VACCINE INJ (MMR-II) (90707) SC SCH (02:50)
--- NOTE | 2021-04-16 02:58 | DNPDOC ---
[facility] Delivery Note Delivery Note DATE OF DELIVERY: 04/16/21 at 0214 PREDELIVERY DIAGNOSIS: 39-0/7 weeks' gestation and induction of labor. POST DELIVERY DIAGNOSIS: Delivered. PROCEDURE: Spontaneous vaginal delivery. FELTMAKER: Ky Allen CNM, RAFIQ ANESTHESIA: epidural. ESTIMATED BLOOD LOSS: 400 mL. FINDINGS: 7 pounds 15 ounces; 3590 grams; female infant, Score 8/9, nuchal cord times x1 tight, right compound hand, terminal meconium, history of shoulder dystocia. DELIVERY SUMMARY: Nikik is a 26-year-old female who is now a who presented to L&D for an induction of labor due to a history of shoulder dystocia. She received 2 doses of Cytotec and IV Pitocin for induction. She requested an epidural for pain management. The patient progressed to fully dilated at 0201 and pushed to a living female in the ALISA position with restitution to ROT. A tight nuchal cord was noted and a right compound hand. The anterior shoulder delivered with ease and the corpus immediately followed via [place]. The baby was placed on the maternal abdomen [id number] active and crying. The cord was clamped after pulsation ceased and cut by the FOB. The placenta delivered intact at 0220. She had a large gush of blood prior to delive ry of placenta and after placenta uterine atony noted and methergine given IM to help with atony along with fundal massage and rapid infusion of IV Pitocin. The vagina, cervix, and perineum was inspected and found to be intact. Mom plans to breastfeed. She desires to start Buspar and has appointment with Dr. Roach in 2 weeks to discuss options for treating her bipolar. They plan on naming her Jo. All counts of instruments and sponges are correct. KY ALLEN CNM Apr 16, 2021 02:58
[2021-04-16] MEDS: ACETAMINOPHEN 500 MG TAB PO PRN (05:29)
[2021-04-16] MEDS: PRENATAL VITAMINS CHEWABLE TABLET PO SCH (09:15)
[2021-04-16] MEDS: busPIRone 5 MG TAB PO SCH ×2 (16:03→20:49)
[2021-04-17 06:00] VITALS: BP 116/69
[2021-04-17] MEDS: ACETAMINOPHEN 500 MG TAB PO PRN (07:57)
[2021-04-17] MEDS: PRENATAL VITAMINS CHEWABLE TABLET PO SCH (07:57)
[2021-04-17] MEDS: busPIRone 5 MG TAB PO SCH (08:03)
== END 2021-04-17 12:30 | disposition home or self-care (01) | DRG 560 ==
LOC: M LDI 08:17 → M OBS 04-16 04:46
PROVIDERS: ADMIT Advanced Practice Midwife; ATTEND Advanced Practice Midwife
PROC: 3E0P7GC Introduction of Other Therapeutic Substance into Female Reproductive, Via Natural or Artificial Opening (ICD-10-PCS; 2021-04-15)
PROC: 10E0XZZ Delivery of Products of Conception, External Approach (ICD-10-PCS; principal; 2021-04-16)
DX: O99.344 Other mental disorders complicating childbirth (principal); F31.9 Bipolar disorder, unspecified; Z3A.39 39 weeks gestation of pregnancy; Z37.0 Single live birth

== ENCOUNTER 2021-11-05 23:41 | Emergency (ER) | payer OTHER ==
[~2021-11-05] VITALS: Ht 167.6 cm; Wt 120.0 kg
[~2021-11-05 23:41] MED LIST changes: +CLAR10CA3 PO
[2021-11-05 23:42] VITALS: BP 127/82
[2021-11-05] MEDS ORDERED: BUSP15TA47 PO (23:46)
[2021-11-05] MEDS ORDERED: TRIL600T PO (23:46)
[2021-11-06] MEDS ORDERED: METH-1165 PO (04:09)
[2021-11-06] MEDS ORDERED: NAPR-837 PO (04:09)
[2021-11-06] MEDS ORDERED: KETOROLAC 60MG 2ML VIAL IM ONE (04:10)
[2021-11-06] MEDS ORDERED: methocarbamoL 750 MG TAB PO ONE (04:10)
== END 2021-11-06 04:35 | disposition home or self-care (01) ==
LOC: M ED 23:41
DX: M54.50 Low back pain, unspecified (principal); F31.9 Bipolar disorder, unspecified; J30.2 Other seasonal allergic rhinitis; Z79.899 Other long term (current) drug therapy
CPT/HCPCS: 72131; 96372; 99283; J1885

== ENCOUNTER → 2022-07-30 | Outpatient (REF) | payer OTHER ==
[~2022-07-30] MED LIST changes: +BUSP15TA47 PO; +METH-1165 PO; +NAPR-837 PO; +TRIL600T PO
== END ==
LOC: M SFHCADAM 15:57
PROVIDERS: ATTEND Family Medicine
DX: J34.89 Other specified disorders of nose and nasal sinuses (principal)

== ENCOUNTER → 2022-08-12 | Outpatient (CLI) | payer OTHER ==
[2022-08-12 17:19] LABS: HEMATOCRIT 39.4 % (36.0-47.0); HEMOGLOBIN 13.1 g/dl (12.0-15.5); MEAN CORPUSCULAR HEMOGLOBIN 28.9 pg (27.0-33.0); MEAN CORPUSCULAR HGB CONC 33.2 g/dl (32.0-36.5); MEAN CORPUSCULAR VOLUME 86.8 fl (80.0-96.0); PLATELET COUNT, AUTOMATED 311 10^3/uL (150-450); RED BLOOD COUNT 4.54 10^6/uL (4.00-5.40); WHITE BLOOD COUNT 9.9 10^3/uL (4.0-10.0)
[2022-08-12 18:33] LABS: HIV 1&2 SCREEN CENTAUR NEGATIVE (NEGATIVE)
[2022-08-12 18:41] LABS: HEPATITIS C VIRUS ABY INDEX 0.1 INDEX (<0.8)
[2022-08-12 22:37] LABS: GC DNA AMPLIFICATION NEGATIVE (NEGATIVE)
== END ==
LOC: M PLALAB 14:55
PROVIDERS: ATTEND Advanced Practice Midwife
DX: Z36.9 Encounter for antenatal screening, unspecified (principal)

== ENCOUNTER → 2022-09-17 | Outpatient (CLI) | payer OTHER | LOC: M PLALAB 08:47 | PROVIDERS: ATTEND Obstetrics & Gynecology | DX: Z36.89 Encounter for other specified antenatal screening (principal); Z34.80 Encounter for supervision of other normal pregnancy, unspecified trimester ==

== ENCOUNTER → 2022-10-15 | Outpatient (REF) | payer OTHER ==
[2022-10-15 15:21] LABS: GC DNA AMPLIFICATION NEGATIVE (NEGATIVE)
== END ==
LOC: M SFHCWAGY 13:07
PROVIDERS: ATTEND Specialist
DX: Z34.82 Encounter for supervision of other normal pregnancy, second trimester (principal)

== ENCOUNTER → 2022-10-28 | Outpatient (CLI) | payer OTHER | LOC: M WHC 07:15 | PROVIDERS: ATTEND Obstetrics & Gynecology | DX: Z34.92 Encounter for supervision of normal pregnancy, unspecified, second trimester (principal); Z3A.21 21 weeks gestation of pregnancy ==

== ENCOUNTER → 2022-12-17 | Outpatient (CLI) | payer OTHER | LOC: M RAD 09:24 | PROVIDERS: ATTEND Advanced Practice Midwife | DX: Z34.82 Encounter for supervision of other normal pregnancy, second trimester (principal); Z3A.28 28 weeks gestation of pregnancy ==

== ENCOUNTER → 2022-12-19 | Outpatient (CLI) | payer OTHER ==
[2022-12-19 14:23] LABS: HEMATOCRIT 34.6 % (36.0-47.0); HEMOGLOBIN 11.5 g/dl (12.0-15.5); MEAN CORPUSCULAR HEMOGLOBIN 29.4 pg (27.0-33.0); MEAN CORPUSCULAR HGB CONC 33.2 g/dl (32.0-36.5); MEAN CORPUSCULAR VOLUME 88.5 fl (80.0-96.0); PLATELET COUNT, AUTOMATED 278 10^3/uL (150-450); RED BLOOD COUNT 3.91 10^6/uL (4.00-5.40); WHITE BLOOD COUNT 12.1 10^3/uL (4.0-10.0)
[2022-12-19 15:48] LABS: GC DNA AMPLIFICATION NEGATIVE (NEGATIVE)
== END ==
LOC: M PLALAB 09:00
PROVIDERS: ATTEND Advanced Practice Midwife
DX: Z34.82 Encounter for supervision of other normal pregnancy, second trimester (principal)

== ENCOUNTER → 2023-02-05 | Outpatient (REF) | payer OTHER | LOC: M SFHCWAGY 12:57 | PROVIDERS: ATTEND Advanced Practice Midwife | DX: Z36.85 Encounter for antenatal screening for Streptococcus B (principal) ==

== ENCOUNTER → 2023-02-23 | Outpatient (CLI) | payer OTHER ==
[~2023-02-23] MED LIST changes: +FLON1SPR NARES; +PRENTAB9 PO; +TUMS500C PO; +UNIS25TA3 PO
== END ==
LOC: M RAD 10:16
PROVIDERS: ATTEND Advanced Practice Midwife
DX: O09.293 Supervision of pregnancy with other poor reproductive or obstetric history, third trimester (principal)

== ENCOUNTER → 2023-07-10 | Outpatient (REF) | payer OTHER ==
[~2023-07-10] MED LIST changes: -MEDR150I10; +MEDR150I13
== END ==
LOC: M PLALAB 11:01
PROVIDERS: ATTEND Advanced Practice Midwife
DX: Z12.4 Encounter for screening for malignant neoplasm of cervix (principal)

== ENCOUNTER → 2023-09-29 | Outpatient (REF) | payer OTHER | LOC: M SFHCADAM 14:53 | PROVIDERS: ATTEND Family Medicine | DX: Z01.84 Encounter for antibody response examination (principal) ==

== ENCOUNTER → 2024-06-22 | Outpatient (REF) | payer OTHER ==
[2024-06-22 15:06] LABS: ALBUMIN 3.7 G/DL (3.2-5.2); ALKALINE PHOSPHATASE 94 U/L (46-116); ALT/SGPT 32 U/L (7.0-40); AST/SGOT 17 U/L (<34); BILIRUBIN,TOTAL 0.4 MG/DL (0.3-1.2); BLOOD UREA NITROGEN 13 MG/DL (9-23); CALCIUM LEVEL 9.1 MG/DL (8.5-10.1); CARBON DIOXIDE LEVEL 29 MMOL/L (20-31); CHLORIDE LEVEL 108 MMOL/L (98-107); CHOLESTEROL LEVEL 121 MG/DL (<200); CHOLESTEROL RISK RATIO 3.15 (<5); CREATININE FOR GFR 0.54 MG/DL (0.55-1.30); GLOMERULAR FILTRATION RATE > 60.0 (>60); GLUCOSE, FASTING 89 MG/DL (60-100); HDL CHOLESTEROL 38.3 MG/DL (>40); LDL CHOLESTEROL 70.7 MG/DL (<100); NON-HDL-C 82.7 MG/DL; POTASSIUM SERUM 4.1 MMOL/L (3.5-5.1); SODIUM LEVEL 141 MMOL/L (136-145); TOTAL PROTEIN 7.4 G/DL (5.7-8.2); TRIGLYCERIDES LEVEL 60 MG/DL (<150)
[2024-06-22 15:09] LABS: FREE T4 1.33 NG/DL (0.89-1.76)
== END ==
LOC: M SFHCADAM 08:01
PROVIDERS: ATTEND Family Medicine
DX: E66.01 Morbid (severe) obesity due to excess calories (principal)

== ENCOUNTER → 2024-07-14 | Outpatient (REF) | payer OTHER ==
[2024-07-14 19:30] LABS: Trichomonas vaginalis (AMP) NOT DETECTED (NEGATIVE)
[2024-07-14 19:54] LABS: GC DNA AMPLIFICATION NEGATIVE (NEGATIVE)
== END ==
LOC: M PLALAB 16:03
PROVIDERS: ATTEND Advanced Practice Midwife
DX: Z11.3 Encounter for screening for infections with a predominantly sexual mode of transmission (principal)

== ENCOUNTER 2024-08-24 17:07 | Emergency (ER) | payer OTHER ==
[~2024-08-24] VITALS: Ht 167.6 cm; Wt 133.1 kg
[2024-08-24] MEDS: ACETAMINOPHEN 325 MG TAB PO ONE (19:56)
[2024-08-24] MEDS: traMADol 50 MG TAB PO ONE (19:57)
[2024-08-24 20:17] VITALS: BP 132/89; TEMP 97.4; O2SAT 100
[2024-08-24] MEDS ORDERED: NAPR-837 PO (20:39)
== END 2024-08-24 20:49 | disposition home or self-care (01) ==
LOC: M ED 17:07
DX: S50.01XA Contusion of right elbow, initial encounter (principal); Y92.019 Unspecified place in single-family (private) house as the place of occurrence of the external cause; Y93.9 Activity, unspecified; Y99.9 Unspecified external cause status; W10.8XXA Fall (on) (from) other stairs and steps, initial encounter; Z91.09 Other allergy status, other than to drugs and biological substances; Z79.899 Other long term (current) drug therapy

== ENCOUNTER → 2024-11-22 | Outpatient (REF) | payer OTHER ==
[2024-11-22 20:24] LABS: GC DNA AMPLIFICATION NEGATIVE (NEGATIVE)
[2024-11-22 20:28] LABS: Trichomonas vaginalis (AMP) NOT DETECTED (NEGATIVE)
== END ==
LOC: M SFHCWAGY 16:56
PROVIDERS: ATTEND Advanced Practice Midwife
DX: Z34.91 Encounter for supervision of normal pregnancy, unspecified, first trimester (principal)

== ENCOUNTER → 2024-12-02 | Outpatient (CLI) | payer OTHER ==
[2024-12-02 13:37] LABS: HEMATOCRIT 39.2 % (36.0-47.0); HEMOGLOBIN 12.4 g/dl (12.0-15.5); MEAN CORPUSCULAR HEMOGLOBIN 26.4 pg (27.0-33.0); MEAN CORPUSCULAR HGB CONC 31.6 g/dl (32.0-36.5); MEAN CORPUSCULAR VOLUME 83.6 fl (80.0-96.0); PLATELET COUNT, AUTOMATED 335 10^3/uL (150-450); RED BLOOD COUNT 4.69 10^6/uL (4.00-5.40); WHITE BLOOD COUNT 9.5 10^3/uL (4.0-10.0)
[2024-12-02 18:39] LABS: HIV 1&2 SCREEN NEGATIVE (NEGATIVE)
[2024-12-02 18:46] LABS: HEPATITIS C VIRUS ABY INDEX 0.04 INDEX (<0.8)
== END ==
LOC: M PLALAB 09:33
PROVIDERS: ATTEND Advanced Practice Midwife
DX: O99.211 Obesity complicating pregnancy, first trimester (principal); E66.9 Obesity, unspecified; Z3A.00 Weeks of gestation of pregnancy not specified

== ENCOUNTER → 2025-03-21 | Outpatient (CLI) | payer OTHER ==
[2025-03-21 17:25] LABS: PLATELET COUNT, AUTOMATED 289 10^3/uL (150-450)
[2025-03-21 17:50] LABS: ALT/SGPT 12 U/L (7.0-40); AST/SGOT 10 U/L (<34); CALCIUM LEVEL 8.3 MG/DL (8.5-10.1); CARBON DIOXIDE LEVEL 24 MMOL/L (20-31); CHLORIDE LEVEL 103 MMOL/L (98-107); CREATININE FOR GFR 0.47 MG/DL (0.55-1.30); GLOMERULAR FILTRATION RATE > 90.0 (>60); POTASSIUM SERUM 3.7 MMOL/L (3.5-5.1); SODIUM LEVEL 139 MMOL/L (136-145)
[2025-03-21 17:52] LABS: TOTAL 25(OH) VITAMIN D 42.7 NG/ML (20.0-100.0)
== END ==
LOC: M PLALAB 10:27
PROVIDERS: ATTEND Nurse Practitioner Psychiatric/Mental Health
DX: F43.20 Adjustment disorder, unspecified (principal)

== ENCOUNTER → 2025-03-21 | Outpatient (CLI) | payer OTHER ==
[2025-03-21 17:25] LABS: PLATELET COUNT, AUTOMATED 284 10^3/uL (150-450)
[2025-03-21 17:44] LABS: GLUCOSE CHALLENGE TEST 1 HOUR 94 MG/DL (LESS THAN 140)
[2025-03-21 18:13] LABS: Trichomonas vaginalis (AMP) NOT DETECTED (NEGATIVE)
[2025-03-21 18:14] LABS: HIV 1&2 SCREEN NEGATIVE (NEGATIVE)
[2025-03-21 18:22] LABS: HEPATITIS C VIRUS ABY INDEX < 0.02 INDEX (<0.8)
[2025-03-21 18:37] LABS: GC DNA AMPLIFICATION NEGATIVE (NEGATIVE)
== END ==
LOC: M PLALAB 10:24
PROVIDERS: ATTEND Obstetrics & Gynecology
DX: Z34.82 Encounter for supervision of other normal pregnancy, second trimester (principal)

== ENCOUNTER → 2025-05-25 | Outpatient (REF) | payer OTHER | LOC: M PLALAB 11:10 | PROVIDERS: ATTEND Advanced Practice Midwife | DX: Z36.89 Encounter for other specified antenatal screening (principal); Z3A.36 36 weeks gestation of pregnancy ==

== ENCOUNTER → 2025-05-26 | Outpatient (CLI) | payer OTHER | LOC: M RAD 12:53 | PROVIDERS: ATTEND Advanced Practice Midwife | DX: O09.293 Supervision of pregnancy with other poor reproductive or obstetric history, third trimester (principal); Z3A.36 36 weeks gestation of pregnancy ==

== ENCOUNTER 2025-06-16 10:44 | Inpatient (IN) | payer OTHER ==
[~2025-06-16] VITALS: Ht 167.6 cm; Wt 145.3 kg
[2025-06-16] MEDS: LR 1,000 ML IV SCH (01:30)
[2025-06-16] MEDS ORDERED: ZOLO25TA PO (11:06)
[2025-06-16 11:09] VITALS: BP 121/66
[2025-06-16] MEDS ORDERED: HOME MED LIST COMPLETE! XX SCH (11:10)
[2025-06-16 11:40] LABS: PLATELET COUNT, AUTOMATED 318 10^3/uL (150-450)
[2025-06-16 12:09] VITALS: BP 126/64
[2025-06-16] MEDS ORDERED: TRANEXAMIC ACID INJection 1,000 MG in NS 100 ML IV PRN (12:15)
[2025-06-16] MEDS ORDERED: LIDOCAINE 1% MDV 20 ML VIAL INFIL PRN (12:15)
[2025-06-16] MEDS ORDERED: CARBOPROST TROMETHAMINE 250 MCG/ML AMP IM PRN (12:15)
[2025-06-16] MEDS ORDERED: OXYTOCIN DRIP 30 UNITS in IV 1 EA IV PRN (12:15)
[2025-06-16] MEDS ORDERED: METHYLERGONOVINE MALEATE 0.2 MG/ML 1 ML VIAL IM PRN (12:15)
[2025-06-16 12:48] LABS: HIV 1&2 SCREEN NEGATIVE (NEGATIVE)
[2025-06-16] MEDS: miSOPROStol 50 MCG 1/2 TABLET PO SCH (12:50)
[2025-06-16 12:56] LABS: HEPATITIS C VIRUS ABY INDEX < 0.02 INDEX (<0.8)
[2025-06-16 14:09] VITALS: BP 111/65
[2025-06-16 15:23] VITALS: BP 115/73
[2025-06-16 17:03] VITALS: BP 114/72
[2025-06-16] MEDS: PENICILLIN G POTASSIUM 5 MU IV 5 MU in DEXTROSE 5% (D5W) MINI-BAG PLU 100 ML IV STA (20:45)
[2025-06-17] VITALS (23 sets, daily range): BP systolic 86–141; BP diastolic 52–90; O2SAT 97–100
[2025-06-17] MEDS: PEN G POT 3,000,000 UNIT/50 ML 3,000,000 UNIT in IV 1 EA IV SCH (01:19)
[2025-06-17] MEDS: OXYTOCIN DRIP 30 UNITS in IV 1 EA IV SCH ×3 (01:56→14:45)
[2025-06-17] MEDS: CALCIUM CARBONATE 500 MG CHEW U/D PO ONE (02:05)
[2025-06-17] MEDS: BUTORPHANOL 2 MG/ML 1 ML VIAL IV ONE (11:57)
[2025-06-17] MEDS ORDERED: RHOGAM 300MCG (1500IU) INJ IM SCH (14:25)
[2025-06-17] MEDS ORDERED: DOCUSATE SODIUM 100 MG CAPSULE PO PRN (14:25)
[2025-06-17] MEDS ORDERED: IBUPROFEN 600 MG TAB PO PRN (14:25)
[2025-06-17] MEDS ORDERED: ACETAMINOPHEN 325 MG TAB PO PRN (14:25)
[2025-06-17] MEDS: IBUPROFEN 800 MG TAB PO PRN (17:14)
[2025-06-17] MEDS: DIBUCAINE 1% OINTMENT 30 GM TOP PRN (20:12)
[2025-06-17] MEDS: SERTRALINE HCL 25 MG TABLET PO SCH (20:13)
[2025-06-17] MEDS: ENOXAPARIN 60 MG/0.6 ML SYRINGE (J1650 PER 10MG) SC SCH (20:13)
[2025-06-18] MEDS: ACETAMINOPHEN 500 MG TAB PO PRN (02:45)
[2025-06-18 06:00] VITALS: BP 119/72; O2SAT 98
[2025-06-18 06:24] LABS: PLATELET COUNT, AUTOMATED 290 10^3/uL (150-450)
[2025-06-18] MEDS: PRENATAL VITAMINS CHEWABLE TABLET PO SCH (08:29)
[2025-06-18] MEDS ORDERED: SERT25TA21 PO (11:10)
[2025-06-18] MEDS: FLUZONE VACCINE TRI PF(25-26) 0.5ML SYRINGE IM.IMMUN ONE (13:51)
[2025-06-19] MEDS ORDERED: MEASLES,MUMPS,RUBELLA VACCINE INJ (MMR-II) SC.IMMUN ONE (09:00)
== END 2025-06-18 14:40 | disposition home or self-care (01) | DRG 560 ==
LOC: M LDI 10:44 → M OBS 06-17 16:00
PROVIDERS: ADMIT Advanced Practice Midwife; ATTEND Student in an Organized Health Care Education/Training Program
PROC: 3E0P7GC Introduction of Other Therapeutic Substance into Female Reproductive, Via Natural or Artificial Opening (ICD-10-PCS; 2025-06-16)
PROC: 10E0XZZ Delivery of Products of Conception, External Approach (ICD-10-PCS; principal; 2025-06-17)
DX: O99.824 Streptococcus B carrier state complicating childbirth (principal); Z37.0 Single live birth; Z3A.39 39 weeks gestation of pregnancy

== ENCOUNTER → 2025-08-14 | Outpatient (REF) | payer OTHER ==
[~2025-08-14] MED LIST changes: +SERT25TA21 PO; +SERT25TA85 PO; +ZOLO25TA PO; +[UNRECOGNIZED DRUG - OTHER]
== END ==
LOC: M PLALAB 14:16
PROVIDERS: ATTEND Student in an Organized Health Care Education/Training Program
DX: Z53.9 Procedure and treatment not carried out, unspecified reason (principal)